=== PATIENT | female | born 1985 | race Caucasian/White ===

== ENCOUNTER 2019-05-27 04:15 | Emergency (ER) | payer SELFPAY ==
[2012-03-26 09:37] VITALS: BP 113/66
--- OUTSIDE RECORDS SUMMARY | 2019-05-27 04:17 | XMS REPORT ---
:1985 [facility] Address [address] [place] [address] Dr. Lopez [address] [place] [id number] Care Team Providers Name Role Phone Unavailable Unavailable Unavailable Problems This patient has no known problems. Allergies, Adverse Reactions, Alerts This patient has no known allergies or adverse reactions. Medications This patient has no known medications.
--- NOTE | 2019-05-27 05:03 | ER ---
Nurse's Notes [facility] Name: Kim Starr Age: 33 yrs Sex: Female : 1985 Arrival Date: 05/27/2019 Time: 04:18 Bed Waiting Private MD: Diagnosis: Presentation: 05/27 04:23 Note Registration states that pt started yelling to herself then stated that she did aa1 not want to be seen after all and walked out to the parking lot. ED Course: 04:18 Patient arrived in ED. es Administered Medications: No medications were administered Outcome: 05:02 Patient left the ED. aa1 Signatures: Yumiko Ramirez RN RN aa1 Bhavana Murguia
== END 2019-05-27 05:02 | disposition left against medical advice (07) ==
LOC: ER 04:15
DX: Z53.21 Procedure and treatment not carried out due to patient leaving prior to being seen by health care provider (principal)

== ENCOUNTER 2023-12-29 08:30 | Emergency (ER) | payer SELFPAY ==
[2012-03-26 09:37] VITALS: BP 113/66
--- OUTSIDE RECORDS SUMMARY | 2023-12-29 08:35 | XMS REPORT | Continuity of Care Document ---
Author Name Unknown Address [address] [facility] [address] [place] [address] [facility] Address [address] [facility] [address] [place] [address] Care Team Providers Care Yarn Carrier Name Role Phone Pcp, Patient Does Not Have A Primary Care Physic yanick Cami MAC, Oriana Jefferson Attending Clinician [phone] Michelle PARISH, Juan Valdez Attending Clinician [phone] Doctor Unassigned, [employer] Attending Clinician U BIANCA Gonzalez Attending Clinician Unavailab alyssa Pacheco MD, Bianca Attending Clinician [phone] SHILOH WRIGHT Attending Clinician Unavailab Shiloh Prescott DO Attending Clinician [phone] CASSIE FISHER Attending Clinician Unavailable Cassie Lawson Attending Clinician [phone] CAYDEN LAO Attending Clinician Unavailable Cayden Metcalf Attending Clinician [phone] ELIZABETH URIBE Attending Clinician Unavailable Elizabeth Uribe DO Attending Clinician [phone] Fredis Foy Attending Clinician Unavaila ble UNDEFINED Admitting Clinician Unavailable BIANCA PACHECO Admitting Clinician Unavailab CAYDEN Vu Admitting Clinician Unavailable Physician, No Primary or Family Admitting Clinic yanick Unavailable Payers Payer Name Policy Type Policy Number Effective Date Expirati on Date Source MEDICAID PENDING PENDING 2021 00:00:00 Problems Condition Name Condition Details Condition Category Status Onset Date Resolution Date Last Treatment Date Treating Clinician Comments Source 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 03-04 00:00: 00 [facility] Allergies, Adverse Reactions, Alerts Allergy Name Allergy Type Status Severity Reaction(s) Onset Date Inactive Date Treating Clinician Comments Source PENICILL IN DRUG INGREDI Active Unknown-Cmnt 08-18 00:00: 00 [facility] Penicill in Propensi ty to adverse reaction s Active Unknown - See comments 08-18 00:00: 00 [facility] Penicill ins DA Active MO 09-13 00:00: 00 [facility] Penicill ins DA Active MO ITCHING 09-13 00:00: 00 [facility] codeine DA Active SV 12-10 00:00: 00 [facility] codeine DA Active SV ITCH 12-10 00:00: 00 [facility] Codeine Propensi ty to adverse reaction s Active Nausea and/or Vomiting 10-03 00:00: 00 [facility] CODEINE DRUG INGREDI Active N/V 10-03 00:00: 00 [facility] Social History Social Habit Start Date Stop Date Quantity Comments Source History of tobacco use Cigarette Smoker [facility] of Social function 2023-11-24 00:00:00 2023-11-24 00:00:00 [facility] Alcoholic beverage intake 2023-11-24 00:00:00 2023-11-24 00:00:00 Current drinker of alcohol (finding) [facility] Cigarettes smoked current (pack per day) - Reported 2022-07-28 00:00:00 2022-07-28 00:00:00 [facility] Cigarette pack-years 2022-07-28 00:00:00 2022-07-28 00:00:00 [facility] Alcohol intake 2022-07-28 00:00:00 2022-07-28 00:00:00 Current drinker of alcohol (finding) [facility] Alcohol Comment 2022-07-28 00:00:00 2022-07-28 00:00:00 1 pint/day [facility] Exposure to SARS-CoV-2 (event) 2022-07-09 00:00:00 2022-07-19 10:58:00 Not sure [facility] Sex assigned at 1985 00:00:00 1985 00:00:00 [facility] Smoking Status Start Date Stop Date Source Smokes tobacco daily 2022-07-28 00:00:00 [facility] Tobacco smoking consumption unknown [facility] Medications Ordered Medication Name Filled Medication Name Start Date Stop Date Current Medication? Ordering Clinician Indication Dosage Frequency Signature (SIG) Comments Components Source tamsulosin (FLOMAX) capsule 0.4 mg 11-24 14:00: 00 Yes .4mg 0.4 mg, Oral, DAILY, First dose on Wed11/25/23 at 0900, Until Discontinu ed, Routine [facility] ketorolac (TORADOL) injection 15 mg 11-24 00:30: 00 11-23 23:47 :00 No 15mg 15 mg, Slow IV Push, ONCE, 1 dose, On 11/24/23 at 1930, Routine [facility] iopamidol (ISOVUE 370-500 mL) injection 80 mL 11-23 23:15: 00 11-23 23:15 :00 No [id number] 80mL 80 mL, Intravenou s, ONCE, 1 dose, On Wed11/24/23 at 1815, Routine [facility] NaCl 0.9% (NS) bolus infusion 1,000 mL 11-23 22:15: 00 11-24 00:26 :00 No 1000mL at 999 mL/hr, 1,000 mL, IV Infusion, ONCE, 1 dose, On Wed11/24/23 at 1715, JAI [facility] ciprofloxac in in 5 % dextrose (CIPRO) piggyback 400 mg 11-23 22:15: 00 11-23 22:59 :00 No 400mg 400 mg, IV Piggyback, ONCE, 1 dose, On Wed11/24/23 at 1715, Administer over 60 Minutes, 200 mL, Reason for Anti-Infec tive: Documented Infection, Documented Infection Site: Urine, Duration of Therapy: Once (ED) [facility] ciprofloxac in HCl 250 mg tablet 11-23 00:00: 00 11-23 00:00 :00 Yes [id number] 250mg Take 1 tablet by mouth in the morning and 1 tablet in the evening. [facility] ketorolac 10 mg tablet 11-23 00:00: 00 11-23 00:00 :00 Yes [id number] 10mg Take 1 tablet by mouth every 6 (six) hours as needed for Pain (scale 4-6) or Pain (scale 7-10). [facility] tamsulosin 0.4 mg 24 hr capsule 11-23 00:00: 00 11-23 00:00 :00 Yes [id number] .4mg Take 1 capsule by mouth at bedtime. [facility] iopamidol (ISOVUE 370-500 mL) injection 100 mL 10-14 12:45: 00 10-14 12:45 :00 Yes [id number] 100mL 100 mL, Intravenou s, ONCE, 1 dose, On Wed10/15/23 at 0745, Routine [facility] acetaminoph en (TYLENOL) tablet 1,000 mg 10-14 12:45: 00 10-14 11:37 :00 No 1000mg 1,000 mg, Oral, ONCE, 1 dose, On Wed10/15/23 at 0745, Routine [facility] levoFLOXaci n (LEVAQUIN) tablet 500 mg 10-14 11:45: 00 10-14 11:37 :00 No 500mg 500 mg, Oral, ONCE, 1 dose, On Wed10/15/23 at 0645, JAI
Re ason for Anti-Infec tive: Documented Infection< br>Documen dione Infection Site: Urine
D uration of Therapy: Other (see Comments) [facility] levoFLOXaci n 500 mg tablet 10-14 00:00: 00 11-23 00:00 :00 No [id number] 500mg Take 1 tablet by mouth every 24 (twenty-fo ur) hours. [facility] acetaminoph en (TYLENOL) tablet 650 mg 07-19 18:15: 00 07-19 19:05 :00 No 650mg 650 mg, Oral, ONCE, 1 dose, On 07/19/22 at 1215, JAI [facility] No known medications 07-19 10:58: 45 No No known medication s [facility] acetaminoph en (TYLENOL) tablet 650 mg 07-19 04:30: 00 07-19 04:20 :00 No 650mg 650 mg, Oral, ONCE, 1 dose, On 07/18/22 at 2230, JAI [facility] No known medications 07-18 22:17: 15 No No known medication s [facility] ibuprofen (IBU) tablet 600 mg 03-30 04:00: 00 03-30 03:59 :00 No 600mg 600 mg, Oral, ONCE, 1 dose, On 03/29/22 at 2300, JAI [facility] No known medications 03-29 22:48: 44 No No known medication s [facility] KCL (KLOR-CON M20) tablet 20 mEq 10-04 01:30: 00 10-04 00:48 :00 No 20meq 20 mEq, Oral, ONCE, 1 dose, On Wed10/03/21 at 2030, [facility] NaCl 0.9% (NS) bolus infusion 1,000 mL 10-04 01:00: 00 10-04 00:51 :00 No 1000mL at 999 mL/hr, 1,000 mL, IV Infusion, ONCE, 1 dose, On Wed10/03/21 at 1999, [facility] ondansetron (ZOFRAN (PF)) injection 4 mg 10-04 01:00: 00 10-03 23:58 :00 No 4mg 4 mg, Slow IV Push, ONCE, 1 dose, On Wed10/03/21 at 1999, [facility] metoprolol tartrate 50 mg tablet 10-03 18:45: 50 10-03 00:00 :00 No 50mg Take 50 mg by mouth 2 (two) times daily. [facility] Hydrocodone -Acetaminop hen (VICODIN ES) 7.5-300 mg tablet 10-03 18:45: 32 10-03 00:00 :00 No Take by mouth as needed. [facility] HYDROcodone -acetaminop hen (NORCO 5) 5-325 mg tablet 1 tablet 08-19 09:15: 00 08-19 08:06 :00 No 1{tbl} 1 tablet, Oral, ONCE, 1 dose, On Wed08/19/21 at 0315, [facility] iohexol (OMNIPAQUE 350 BULK-500 mL) injection 100 mL 08-19 07:00: 00 08-19 05:44 :00 No [id number] 100mL 100 mL, Intravenou s, ONCE, 1 dose, On Wed08/19/21 at 0100, Routine [facility] FENTanyl PF (SUBLIMAZE (PF)) injection 50 mcg 08-19 05:45: 00 08-19 05:04 :00 No 50ug 50 mcg, Slow IV Push, ONCE, 1 dose, On Wed08/18/21 at 2345, STAT [facility] Vancomycin 750 mg in NaCl 0.9% (NS) 250 mL VIAL-MATE 08-19 05:00: 00 08-19 05:06 :00 No 15mg/kg 750 mg (rounded from 714 mg = 15 mg/kg ?47.6 kg), IV Piggyback, ONCE, 1 dose, On Wed08/18/21 at 2300, Administer over 60 Minutes, 250 mL
Reas on for Anti-Infec tive: Documented Infection< br>Docu mented Infection Site: Skin / Soft Tissue
Duration of Therapy: Other (see Comments) [facility] HYDROcodone -acetaminop hen (NORCO 5) 5-325 mg tablet 1 tablet 08-19 05:00: 00 08-19 04:06 :00 No 1{tbl} 1 tablet, Oral, ONCE, 1 dose, On Wed08/18/21 at 2300, JAI [facility] doxycycline hyclate 100 mg capsule 08-19 00:00: 00 10-03 00:00 :00 No [id number] 100mg Take 1 capsule by mouth 2 (two) times daily. [facility] ibuprofen 600 mg tablet 08-19 00:00: 00 10-03 00:00 :00 No [id number] 600mg Take 1 tablet by mouth every 6 (six) hours as needed for Pain (scale 4-6). [facility] mupirocin 2 % ointment 08-19 00:00: 00 10-03 00:00 :00 No [id number] Apply to area(s) 3 (three) times daily. [facility] clindamycin 150 mg capsule 08-19 00:00: 00 08-27 05:59 :00 No [id number] 450mg Take 3 capsules by mouth 4 (four) times daily for 7 days. [facility] sulfamethox azole-trime thoprim 800-160 mg per tablet 11-08 00:00: 00 10-03 00:00 :00 No [id number] 1{tbl} Take 1 tablet by mouth every 12 (twelve) hours. [facility] mupirocin (BACTROBAN) 2 % ointment 11-08 00:00: 00 10-03 00:00 :00 No [id number] Apply to area(s) 3 (three) times daily. [facility] ibuprofen 600 mg tablet 11-08 00:00: 10-03 00:00 :00 No [id number] 600mg Take 1 tablet by mouth every 6 (six) hours as needed for Pain (scale 4-6). [facility] metoprolol tartrate 50 mg tablet 01-28 04:26: 59 Yes 50mg Take 50 mg by mouth 2 (two) times daily. [facility] Hydrocodone -Acetaminop hen (VICODIN ES) 7.5-300 mg tablet 01-28 04:26: 59 Yes Take by mouth as needed. [facility] metoprolol tartrate 50 mg tablet 01-27 23:26: 59 Yes 50mg Take 50 mg by mouth 2 (two) times daily. [facility] Hydrocodone -Acetaminop hen (VICODIN ES) 7.5-300 mg tablet 01-27 23:26: 59 Yes Take by mouth as needed. [facility] Immunizations Ordered Immunization Name Filled Immunization Name Date Status Comments Source Td 2022-03-29 00:00:00 Completed [facility] TD, NOS 2022-03-29 00:00:00 Completed [facility] TD, NOS 2022-03-29 00:00:00 Completed [facility] TD, NOS 2022-03-29 00:00:00 Completed [facility] Td 2019-05-12 00:00:00 Completed [facility] Td 2019-05-12 00:00:00 Completed [facility] TD, NOS 2019-05-12 00:00:00 Completed [facility] TD, NOS 2019-05-12 00:00:00 Completed [facility] Td 2019-05-12 00:00:00 Completed [facility] TD, NOS 2019-05-12 00:00:00 Completed [facility] Td 2019-05-12 00:00:00 Completed [facility] Td 2019-05-12 00:00:00 Completed [facility] Td 2019-05-12 00:00:00 Completed [facility] TD, NOS Unknown Completed [facility] TD, NOS Unknown Completed [facility] TD, NOS Unknown Completed [facility] TD, NOS Unknown Completed [facility] Vital Signs Vital Name Observation Time Observation Value Comments S ource Systolic blood pressure 2023-11-25 00:25:00 137 mm[Hg] [facility] Diastolic blood pressure 2023-11-25 00:25:00 93 mm[Hg] [facility] Heart rate 2023-11-25 00:25:00 81 /min [facility] Body temperature 2023-11-25 00:25:00 36.06 Chantelle [facility] Respiratory rate 2023-11-25 00:25:00 18 /min [facility] Oxygen saturation in Arterial blood by Pulse oximetry 2023-11-25 00:25:00 100 /min [facility] Body height 2023-11-24 21:16:[address] [facility] Body weight 2023-11-24 21:16:[address] [facility] BMI 2023-11-24 21:16:00 16.14 kg/m2 [facility] Systolic blood pressure 2023-10-15 09:20:00 143 mm[Hg] [facility] Diastolic blood pressure 2023-10-15 09:20:00 77 mm[Hg] [facility] Heart rate 2023-10-15 09:20:00 87 /min [facility] Body temperature 2023-10-15 09:20:00 37.11 Chantelle [facility] Respiratory rate 2023-10-15 09:20:00 18 /min [facility] Body height 2023-10-15 09:20:00 167.6 cm [facility] Body weight 2023-10-15 09:20:00 48.988 kg [facility] BMI 2023-10-15 09:20:00 17.43 kg/m2 [facility] Oxygen saturation in Arterial blood by Pulse oximetry 2023-10-15 09:20:00 98 /min [facility] Systolic blood pressure 2022-07-19 16:59:00 127 mm[Hg] [facility] Diastolic blood pressure 2022-07-19 16:59:00 84 mm[Hg] [facility] Heart rate 2022-07-19 16:59:00 80 /min [facility] Body temperature 2022-07-19 16:59:00 36.39 Chantelle [facility] Respiratory rate 2022-07-19 16:59:00 14 /min [facility] Body height 2022-07-19 16:59:[address] [facility] Body weight 2022-07-19 16:59:[address] [facility] BMI 2022-07-19 16:59:00 17.75 kg/m2 [facility] Oxygen saturation in Arterial blood by Pulse oximetry 2022-07-19 16:59:00 100 /min [facility] Systolic blood pressure 2022-07-19 04:16:00 130 mm[Hg] [facility] Diastolic blood pressure 2022-07-19 04:16:00 82 mm[Hg] [facility] Heart rate 2022-07-19 04:16:00 87 /min [facility] Body temperature 2022-07-19 04:16:00 36.28 Chantelle [facility] Respiratory rate 2022-07-19 04:16:00 19 /min [facility] Body height 2022-07-19 04:16:00 167.6 cm [facility] Body weight 2022-07-19 04:16:00 48.988 kg [facility] BMI 2022-07-19 04:16:00 17.43 kg/m2 [facility] Oxygen saturation in Arterial blood by Pulse oximetry 2022-07-19 04:16:00 99 /min [facility] Systolic blood pressure 2022-03-30 03:54:00 139 mm[Hg] [facility] Diastolic blood pressure 2022-03-30 03:54:00 78 mm[Hg] [facility] Heart rate 2022-03-30 03:54:00 85 /min [facility] Body temperature 2022-03-30 03:54:00 36.72 Chantelle [facility] Respiratory rate 2022-03-30 03:54:00 20 /min [facility] Body height 2022-03-30 03:54:00 167.6 cm [facility] Body weight 2022-03-30 03:54:[address] [facility] BMI 2022-03-30 03:54:00 19.68 kg/m2 [facility] Oxygen saturation in Arterial blood by Pulse oximetry 2022-03-30 03:54:00 98 /min [facility] Heart rate 2021-10-04 00:30:00 83 /min [facility] Respiratory rate 2021-10-04 00:30:00 14 /min [facility] Oxygen saturation in Arterial blood by Pulse oximetry 2021-10-04 00:30:00 99 /min [facility] Systolic blood pressure 2021-10-04 00:00:00 131 mm[Hg] [facility] Diastolic blood pressure 2021-10-04 00:00:00 91 mm[Hg] [facility] Body temperature 2021-10-03 23:41:00 36.61 Chantelle [facility] Body weight 2021-10-03 23:41:00 56.7 kg [facility] BMI 2021-10-03 23:41:00 19.58 kg/m2 [facility] Heart rate 2021-08-19 08:33:00 92 /min [facility] Respiratory rate 2021-08-19 08:33:00 18 /min [facility] Oxygen saturation in Arterial blood by Pulse oximetry 2021-08-19 08:33:00 97 /min [facility] Systolic blood pressure 2021-08-19 05:30:00 123 mm[Hg] [facility] Diastolic blood pressure 2021-08-19 05:30:00 83 mm[Hg] [facility] Body weight 2021-08-19 03:33:[address] [facility] BMI 2021-08-19 03:33:00 16.45 kg/m2 [facility] Body temperature 2021-08-19 03:33:00 36.17 Chantelle [facility] Body height 2021-08-19 03:33:[address] [facility] Systolic blood pressure 2021-08-03 08:57:46 151 mm[Hg] [facility] Diastolic blood pressure 2021-08-03 08:57:46 114 mm[Hg] [facility] Heart rate 2021-08-03 08:57:46 98 /min [facility] Body temperature 2021-08-03 08:57:46 37.11 Chantelle [facility] Respiratory rate 2021-08-03 08:57:46 18 /min [facility] Oxygen saturation in Arterial blood by Pulse oximetry 2021-08-03 08:57:46 95 /min [facility] Body height 2021-08-03 08:56:[address] [facility] Body weight 2021-08-03 08:56:[address] [facility] BMI 2021-08-03 08:56:00 20.98 kg/m2 [facility] Systolic blood pressure 2021-02-22 08:38:00 143 mm[Hg] [facility] Diastolic blood pressure 2021-02-22 08:38:00 87 mm[Hg] [facility] Heart rate 2021-02-22 08:38:00 52 /min [facility] Respiratory rate 2021-02-22 08:38:00 14 /min [facility] Body height 2021-02-22 08:38:[address] [facility] Body weight 2021-02-22 08:38:[address] [facility] BMI 2021-02-22 08:38:00 20.98 kg/m2 [facility] Oxygen saturation in Arterial blood by Pulse oximetry 2021-02-22 08:38:00 94 /min [facility] Procedures Procedure Date / Time Performed Performing Clinician Source POCT TEST 2023-11-24 21:51:00 Oriana Almanza [facility] LIPASE 2023-11-24 21:50:[address] [facility] COMP. METABOLIC PANEL ([id number]) 2023-11-24 21:50:00 Oriana Almanza [facility] ETHANOL 2023-11-24 21:50:[address] [facility] CBC WITH DIFF 2023-11-24 21:50:00 Oriana Almanza [facility] URINALYSIS 2023-11-24 21:50:[address] [facility] URINE DRUG (IMMUNOASSAY) - COMPREHENSIVE DRUG SCREEN W/O REFLEX 2023-11-24 21:50:00 Oriana Almanza [facility] LIPASE 2023-10-15 10:31:[address] [facility] COMP. METABOLIC PANEL ([id number]) 2023-10-15 10:31:00 Juan Martinez [facility] CBC WITH DIFF 2023-10-15 10:31:00 Juan Martinez [facility] URINALYSIS 2023-10-15 09:50:[address] [facility] EMERGENCY DEPARTMENT DOCUMENTS 2022-09-07 06:01:00 Doctor Unassigned, [employer] [facility] XR ABDOMEN ACUTE SERIES 2022-07-19 18:38:00 Bianca Cota [facility] COVID-19 (ID NOW RAPID TESTING) 2022-07-19 18:24:00 Vinodoejoliemalinda Bianca [facility] LIPASE 2021-10-03 23:53:00 [facility] 2021-10-03 23:53:00 José Miguel [facility] COMP. METABOLIC PANEL ([id number]) 2021-10-03 23:53:00 Cassie Fisher [facility] ETHANOL 2021-10-03 23:53:00 José Miguel [facility] CBC WITH DIFF 2021-10-03 23:53:00 Cassie Fisher [facility] N-TERMINAL PRO-BNP 2021-10-03 23:53:00 Blanca Fisher [facility] INCISION AND DRAINAGE 2021-08-19 08:28:14 Curtis Lao [facility] LACTIC ACID WHOLE BLOOD 2021-08-19 07:22:00 Me helen Lao [facility] CT SOFT TISSUE NECK W CONTRAST 2021-08-19 05:46:00 Cayden Lao [facility] POCT TEST 2021-08-19 05:39:00 Cayden Lao [facility] URINALYSIS 2021-08-19 05:23:00 Cayden Lao [facility] URINE DRUG (IMMUNOASSAY) - COMPREHENSIVE DRUG SCREEN W/O REFLEX 2021-08-19 05:23:00 Cayden Lao [facility] XR HAND 3+ VW LEFT 2021-08-19 04:53:00 Cayden Lao [facility] BLOOD CULTURE SCREEN 2021-08-19 04:21:00 Cayden Lao [facility] COMP. METABOLIC PANEL ([id number]) 2021-08-19 04:20:00 Cayedn Lao [facility] CBC WITH DIFF 2021-08-19 04:20:[address] [facility] LACTIC ACID WHOLE BLOOD 2021-08-19 04:19:00 Me helen Lao [facility] Encounters Start Date/Time End Date/Time Encounter Type Admission Type Attending [facility] Care Department Encounter ID Source 2019-09-14 10:13:00 Inpatient [facility] [id number] [facility] 2023-11-24 16:05:00 2023-11-24 19:29:00 Emergency Oriana Almanza [facility] [id number] [facility] 2023-10-15 04:47:00 2023-10-15 07:34:00 Emergency Michelle Juan Valdez [facility] [id number] [facility] 2022-09-07 00:00:00 2022-09-07 00:00:00 Orders Only Doctor Unassigned, [employer] [facility] [id number] [id number] [facility] 2022-07-19 10:56:00 2022-07-19 13:41:00 Emergency BIANCA PRYOR [facility] E[facility] [id number] [facility] 2022-07-19 10:56:00 2022-07-19 13:41:00 Emergency Bianca Pacheco [facility] [id number] [id number] [facility] 2022-07-18 22:16:00 2022-07-18 22:52:00 Emergency SHILOH URBINA [facility] ERT [id number] [facility] 2022-07-18 22:16:00 2022-07-18 22:52:00 Emergency Shiloh Wright [facility] [id number] [facility] 2022-03-29 22:56:00 2022-03-29 23:12:00 Emergency X SHILOH WRIGHT [facility] ERT [id number] [facility] 2022-03-29 22:56:00 2022-03-29 23:12:00 Emergency Shiloh Wright [facility] 1..114 [id number] [id number] [facility] 2021-10-03 18:40:00 2021-10-03 19:56:00 Emergency X CASSIE FISHER [facility] [id number] [facility] [facility] 2021[facility]-03 18:40:00 2021-10-03 19:56:00 Emergency Cassie Fisher [facility] 1..114 350.1.13.10 4.2.7.2.686 [id number] [id number] [facility] 2021-08-18 21:38:00 2021-08-19 02:43:00 Emergency X CAYDEN LAO [facility] ERT [id number] [facility] 2021-08-18 21:38:00 2021-08-19 02:43:00 Emergency Cayden Lao [facility] 1.84.114 350.1.13.10 4.2.7.2.686 [id number] [id number] [facility] 2021-08-03 03:33:00 2021-08-03 03:34:00 Emergency X ELIZABETH URIBE [facility] ERT [id number] [facility] 2021-08-03 03:33:00 2021-08-03 03:34:00 Emergency Elizabeth Uribe [facility] 1.84.114 350.1.13.10 4.2.7.2.686 [id number] [id number] [facility] 2021-07-30 14:36:00 2021-07-30 17:19:00 Emergency X ELIZABETH URIBE [facility] ERT [id number] [facility] 2021-07-30 14:36:00 2021-07-30 17:19:00 Emergency Elizabeth Uribe [facility] 1.2.840.114 350.1.13.10 4.2.7.2.686 [id number] 084 [id number] [facility] 2021-02-22 03:41:00 2021-02-22 04:34:00 Emergency Juan Martinez [facility] 1.2.840.114 350.1.13.10 4.2.7.2.686 [id number] [id number] [facility] 2021-02-22 03:41:00 2021-02-22 03:41:00 Emergency X [facility] ERT [id number] [facility] 2019-09-15 00:24:00 2019-09-15 00:24:00 Outpatient Fredis Foy [facility] OUTD [id number] 17 [facility] 2019-05-12 23:26:57 2019-05-12 23:54:00 Emergency X SHILOH WRIGHT [facility] ERT [id number] [facility] Results Test Description Test Time Test Comments Results Result Co mments Source [facility] 22:18:04* Test Item Value Reference Range Interpretation Comme nts ALCOHOL (test code = 7624754733) 209 mg/dL CECIL (test code = CECIL) <10 [id number] Toxic>100 Depression of DATA VISUALIZATION DEVELOPER>400 Fatalities Reported [facility] METABOLIC PANEL (32071)2023-11-24 22:17:23* Test Item Value Reference Range Interpretation Comme nts NA (test code = 7241515148) 140 mmol/L 135-145 K (test code = 5634263456) 3.3 mmol/L 3.5-5.0 L CL (test code = 0876956776) 107 mmol/L 98-108 CO2 TOTAL (test code = 5701084874) 21 mmol/L 23-31 L AGAP (test code = 5378806312) 12 2-16 BUN (test code = 1835975479) 16 mg/dL 7-23 GLUCOSE (test code = 6550921383) 88 mg/dL 70-110 CREATININE (test code = 2160-0) 0.83 mg/dL 0.50-1.04 TOTAL BILI (test code = 2360613278) 0.9 mg/dL 0.1-1.1 CALCIUM (test code = 5637303409) 8.4 mg/dL 8.6-10.6 L T PROTEIN (test code = 7321644684) 7.6 g/dL 6.3-8.2 ALBUMIN (test code = 6590724642) 4.0 g/dL 3.5-5.0 ALK PHOS (test code = 4908297227) 112 U/L 34-122 ALTv (test code = 1742-6) 16 U/L 5-35 AST(SGOT) (test code = 1429603306) 41 U/L 13-40 H eGFR (test code = 31394-3) 91.5 mL/min/1.73m2 CKD-EPI eGFR (2020). Assuming creatinine has been stable day-to-day for at least three months, the eGFR indicates Category G1 (>= 90 mL/min/1.73 m2) Lab Interpretation (test code = 97038-7) Abnormal [facility]2024-05-15 22:17:08* Test Item Value Reference Range Interpretation Comme nts LIPASE (test code = 0068185693) 96 U/L 0-220 Lab Interpretation (test cod e = 96175-6) Normal [facility] [id number] 21:51:00* Test Item Value Reference Range Interpretation Comme nts POCT PREG (test code = 1605) Negative On board controls acceptable with C Line (test code = 3574) Yes POCT PREG LOT # (test code = 3575) [id number] POCT PREG TEST DATE ( test code = 3576) 2024-10-17 Lab Interpretation (test cod e = 14054-8) Normal [facility] with [id number] 11:25:41* Test Item Value Reference Range Interpretation Comme nts WBC (test code = 6690-2) 4.84 4.30-11.10 RBC (test code = 789-8) 4.07 3.93-5.25 HGB (test code = 718-7) 7.5 g/dL 11.6-15.0 L HCT (test code = 4544-3) 27.0 % 35.7-45.2 L MCV (test code = 787-2) 66.3 fL 80.6-95.5 L MCH (test code = 785-6) 18.4 pg 25.9-32.8 L MCHC (test code = 786-4) 27.8 g/dL 31.6-35.1 L RDW-SD (test code = 24968-2) 39.2 fL 39.0-49.9 RDW-CV (test code = 788-0) 16.7 % 12.0-15.5 H PLT (test code = 777-3) 318 166-358 MPV (test code = 96962-9) 9.0 fL 9.5-12.9 L NRBC/100 WBC (test code = 6235144692) 0.0 0.0-10.0 NRBC x10^3 (test code = 8525043929) See_Comment [Automated messa ge] The system which generated this result transmitted reference range: 10*3/?L. The reference range was not used to interpret this result as normal/abnormal. SEG % (test code = 39490-0) 72 % 33-76 LYMPH % (test code = 77596-9) 16 % 14-54 MONO % (test code = 81616-7) 12 % 0-4 H ANC (test code = 753-4) 3.48 10*3/uL 1.88-7.09 Lab Interpretation (test code = 71498-0) Abnormal [facility] Metabolic Panel (72077)2023-10-15 11:07:15* Test Item Value Reference Range Interpretation Comme nts NA (test code = 6815632478) 137 mmol/L 135-145 K (test code = 3939366273) 3.3 mmol/L 3.5-5.0 L CL (test code = 8870140742) 104 mmol/L 98-108 CO2 TOTAL (test code = 2589993207) 22 mmol/L 23-31 L AGAP (test code = 6903298125) 11 2-16 BUN (test code = 3326234579) 18 mg/dL 7-23 GLUCOSE (test code = 8155512978) 99 mg/dL 70-110 CREATININE (test code = 2160-0) 0.78 mg/dL 0.50-1.04 TOTAL BILI (test code = 1856479809) 0.8 mg/dL 0.1-1.1 CALCIUM (test code = 2210474475) 9.1 mg/dL 8.6-10.6 T PROTEIN (test code = 0561447050) 8.3 g/dL 6.3-8.2 H ALBUMIN (test code = 5899838396) 4.3 g/dL 3.5-5.0 ALK PHOS (test code = 1104117643) 95 U/L 34-122 ALTv (test code = 1742-6) 17 U/L 5-35 AST(SGOT) (test code = 7511571220) 38 U/L 13-40 eGFR (test code = 80930-8) 98.6 mL/min/1.73m2 CKD-EPI eGFR (2020). Assuming creatinine has been stable day-to-day for at least three months, the eGFR indicates Category G1 (>= 90 mL/min/1.73 m2) Lab Interpretation (test code = 51953-5) Abnormal [facility]2024-04-05 11:06:54* Test Item Value Reference Range Interpretation Comme nts LIPASE (test code = 5523041704) 124 U/L 0-220 Lab Interpretation (test cod e = 58209-3) Normal [facility]aleTROPONIN [id number] 00:32:37* Test Item Value Reference Range Interpretation Comments TROPONIN I (test code = 6251574918) 0.002 ng/mL See_Comment [Automated message] The system which generated this result transmitted reference range: <=0.034. The reference range was not used to interpret this result as normal/abnormal. CECIL (test code = CECIL) Reference (Normal) Range (defined by the 99th percentile reference limit): <= 0.034 ng/mL Note: Cardiac troponin begins to rise 3-4 hours after the onset of ischemia. Repeat in 4-6 hours if the sample was drawn within 3-4 hours of the onset of the symptom and found normal. Diagnosis of myocardial injury is made with acute changes in cTn concentrations with at least one serial sample above the 99th percentile upper reference limit (URL), taken together with the patient's clinical presentation. Biotin has been reported to cause a negative bias, interpret results relative to patient's use of biotin. Lab Interpretation (test code = 06422-0) Normal [facility]aleN-TERMINAL BYM-TBV1618-67-26 00:29:16* Test Item Value Reference Range Interpretation Comme nts NT-proBNP (test code = 8247680063) 223 pg/mL See_Comment H [Automated message] The system which generated this result transmitted reference range: <=125. The reference range was not used to interpret this result as normal/abnormal. CECIL (test code = CECIL) Biotin has been reported to cause a negative bias, interpret results relative to patient's use of biotin. Lab Interpretation (test code = 59152-5) Abnormal [facility]ETH[facility]OL2022-03-26 00:21:13* Test Item Value Reference Range Interpretation Comme nts ALCOHOL (test code = 7102928166) 72 mg/dL CECIL (test code = CECIL) <10 Lqwrouor78-685 Toxic>100 Depression of DATA VISUALIZATION DEVELOPER>400 Fatalities Reported [facility]. METABOLIC PANEL (26342)2021-10-04 00:20:37* Test Item Value Reference Range Interpretation Comme nts NA (test code = 0006158707) 137 mmol/L 135-145 K (test code = 8767625331) 3.3 mmol/L 3.5-5.0 L CL (test code = 1391698575) 105 mmol/L 98-108 CO2 TOTAL (test code = 6530432319) 21 mmol/L 23-31 L AGAP (test code = 0432622146) 2-16 BUN (test code = 2492290647) 14 mg/dL 7-23 GLUCOSE (test code = 7856413847) 89 mg/dL 70-110 CREATININE (test code = 7894893821) 0.77 mg/dL 0.50-1.04 TOTAL BILI (test code = 6877800557) 0.7 mg/dL 0.1-1.1 CALCIUM (test code = 9464407962) 8.6 mg/dL 8.6-10.6 T PROTEIN (test code = 6490408260) 7.4 g/dL 6.3-8.2 ALBUMIN (test code = 9681193846) 4.4 g/dL 3.5-5.0 ALK PHOS (test code = 8250340697) 72 U/L 34-122 ALTv (test code = 1742-6) 16 U/L 5-35 AST(SGOT) (test code = 0414433124) 32 U/L 13-40 eGFR (test code = 6033324249) mL/min/1.73m2 CECIL (test code = CECIL) Association of Glomerular Filtration Rate (GFR) and Staging of Kidney Disease* + --+ --+ ------+| GFR (mL/min/1.73 m2) ?| With Kidney Damage ?| ?Without Kidney Damage+ --------+ --------+ +| ?>90 ?| ?Stage one ?| ? Normal ?+ ---+ ---+ -------+| ?60-89 ?| ?Stage two ?| ? Decreased GFR ? + --+ --+ ------+| ?30-59 ?| ?Stage three ?| ? Stage three ? + --+ --+ ------+| ?15-29 ?| ?Stage four ? | ? Stage four ?+ ---+ ---+ -------+| ?<15 (or dialysis) ? ?| ?Stage five ? | ? Stage five ?+ ---+ ---+ -------+ *Each stage assumes the associated GFR level has been in effect for at least three months. ?Stages 1 to 5, with or without kidney disease, indicate chronic kidney disease. Notes: Determination of stages one and two (with eGFR >59mL/min/1.73 m2) requires estimation of kidney damage for at least three months as defined by structural or functional abnormalities of the kidney, manifested by either:Pathological abnormalities or Markers of kidney damage (including abnormalities in the composition of the blood or urine or abnormalities in imaging tests). Lab Interpretation (test code = 25891-3) Abnormal [facility]2022-03-26 00:20:17* Test Item Value Reference Range Interpretation Comme nts LIPASE (test code = 4530191318) 150 U/L 0-220 Lab Interpretation (test cod e = 13557-7) Normal [facility]aleCB WITH [id number] 00:13:12* Test Item Value Reference Range Interpretation Comme nts WBC (test code = 6690-2) See_Comment [Automated messa ge] The system which generated this result transmitted reference range: 4.30 - 11.10 10*3/?L. The reference range was not used to interpret this result as normal/abnormal. RBC (test code = 789-8) See_Comment L [Automated messa ge] The system which generated this result transmitted reference range: 3.93 - 5.25 10*6/?L. The reference range was not used to interpret this result as normal/abnormal. HGB (test code = 718-7) 9.3 g/dL 11.6-15.0 L HCT (test code = 4544-3) 30.6 % 35.7-45.2 L MCV (test code = 787-2) 80.3 fL 80.6-95.5 L MCH (test code = 785-6) 24.4 pg 25.9-32.8 L MCHC (test code = 786-4) 30.4 g/dL 31.6-35.1 L RDW-SD (test code = 96990-2) 44.0 fL 39.0-49.9 RDW-CV (test code = 788-0) 15.0 % 12.0-15.5 PLT (test code = 777-3) See_Comment H [Automated messa ge] The system which generated this result transmitted reference range: 166 - 358 10*3/?L. The reference range was not used to interpret this result as normal/abnormal. MPV (test code = 39358-4) 9.2 fL 9.5-12.9 L NRBC/100 WBC (test code = 9200609907) See_Comment [Automated me ssage] The system which generated this result transmitted reference range: 0.0 - 10.0 /100 WBCs. The reference range was not used to interpret this result as normal/abnormal. NRBC x10^3 (test code = 3092782284) <0.01 See_Comment [Automated messa ge] The system which generated this result transmitted reference range: 10*3/?L. The reference range was not used to interpret this result as normal/abnormal. GRAN MAT (NEUT) % (test code = 770-8) 70.6 % IMM GRAN % (test code = 1542478698) 0.40 % LYMPH % (test code = 736-9) 19.9 % MONO % (test code = 5905-5) 7.8 % EOS % (test code = 713-8) 0.7 % BASO % (test code = 706-2) 0.6 % GRAN MAT x10^3(ANC) (test code = 3909789935) 3.81 10*3/uL 1.88-7.09 IMM GRAN x10^3 (test code = 8291810098) <0.03 0.00-0.06 LYMPH x10^3 (test code = 731-0) 1.07 10*3/uL 1.32-3.29 L MONO x10^3 (test code = 742-7) 0.42 10*3/uL 0.33-0.92 EOS x10^3 (test code = 711-2) 0.04 10*3/uL 0.03-0.39 BASO x10^3 (test code = 704-7) 0.03 10*3/uL 0.01-0.07 Lab Interpretation (test code = 28675-2) Abnormal [facility] [id number] 05:39:00* Test Item Value Reference Range Interpretation Comme nts POCT PREG (test code = 1605) negative On board controls acceptable with C Line (test code = 3574) negative POCT PREG LOT # (test code = 3575) [id number] POCT PREG TEST DATE ( test code = 3576) 09-08-2022 Lab Interpretation (test cod e = 79738-0) Normal [facility]. METABOLIC PANEL (00852)2021-08-19 05:01:43* Test Item Value Reference Range Interpretation Comme nts NA (test code = 8807511571) 138 mmol/L 135-145 K (test code = 3554804347) 3.4 mmol/L 3.5-5.0 L CL (test code = 7517770048) 105 mmol/L 98-108 CO2 TOTAL (test code = 8907108950) 26 mmol/L 23-31 AGAP (test code = 9837412718) 2-16 BUN (test code = 6224243665) 11 mg/dL 7-23 GLUCOSE (test code = 6902404439) 97 mg/dL 70-110 CREATININE (test code = 9204006873) 0.72 mg/dL 0.50-1.04 TOTAL BILI (test code = 9375342394) 0.2 mg/dL 0.1-1.1 CALCIUM (test code = 3692878435) 7.5 mg/dL 8.6-10.6 L T PROTEIN (test code = 1673233377) 6.0 g/dL 6.3-8.2 L ALBUMIN (test code = 9875432303) 3.0 g/dL 3.5-5.0 L ALK PHOS (test code = 9966150940) 104 U/L 34-122 ALTv (test code = 1742-6) 11 U/L 5-35 AST(SGOT) (test code = 6936474419) 26 U/L 13-40 eGFR (test code = 8431203396) mL/min/1.73m2 CECIL (test code = CECIL) Association of Glomerular Filtration Rate (GFR) and Staging of Kidney Disease* + --+ --+ ------+| GFR (mL/min/1.73 m2) ?| With Kidney Damage ?| ?Without Kidney Damage+ --------+ --------+ +| ?>90 ?| ?Stage one ?| ? Normal ?+ ---+ ---+ -------+| ?60-89 ?| ?Stage two ?| ? Decreased GFR ? + --+ --+ ------+| ?30-59 ?| ?Stage three ?| ? Stage three ? + --+ --+ ------+| ?15-29 ?| ?Stage four ? | ? Stage four ?+ ---+ ---+ -------+| ?<15 (or dialysis) ? ?| ?Stage five ? | ? Stage five ?+ ---+ ---+ -------+ *Each stage assumes the associated GFR level has been in effect for at least three months. ?Stages 1 to 5, with or without kidney disease, indicate chronic kidney disease. Notes: Determination of stages one and two (with eGFR >59mL/min/1.73 m2) requires estimation of kidney damage for at least three months as defined by structural or functional abnormalities of the kidney, manifested by either:Pathological abnormalities or Markers of kidney damage (including abnormalities in the composition of the blood or urine or abnormalities in imaging tests). Lab Interpretation (test code = 49750-7) Abnormal [facility] WITH [id number] 04:47:59* Test Item Value Reference Range Interpretation Comme nts WBC (test code = 6690-2) See_Comment [Automated [employer]] The system which generated this result transmitted reference range: 4.30 - 11.10 10*3/?L. The reference range was not used to interpret this result as normal/abnormal. RBC (test code = 789-8) See_Comment L [Automated [employer]] The system which generated this result transmitted reference range: 3.93 - 5.25 10*6/?L. The reference range was not used to interpret this result as normal/abnormal. HGB (test code = 718-7) 8.9 g/dL 11.6-15.0 L HCT (test code = 4544-3) 28.7 % 35.7-45.2 L MCV (test code = 787-2) 86.2 fL 80.6-95.5 MCH (test code = 785-6) 26.7 pg 25.9-32.8 MCHC (test code = 786-4) 31.0 g/dL 31.6-35.1 L RDW-SD (test code = 66241-2) 45.7 fL 39.0-49.9 RDW-CV (test code = 788-0) 14.6 % 12.0-15.5 PLT (test code = 777-3) See_Comment [Automated [employer]] The system which generated this result transmitted reference range: 166 - 358 10*3/?L. The reference range was not used to interpret this result as normal/abnormal. MPV (test code = 84406-5) 9.3 fL 9.5-12.9 L NRBC/100 WBC (test code = 8756686913) See_Comment [Automated me ssage] The system which generated this result transmitted reference range: 0.0 - 10.0 /100 WBCs. The reference range was not used to interpret this result as normal/abnormal. NRBC x10^3 (test code = 8799774467) <0.01 See_Comment [Automated messa ge] The system which generated this result transmitted reference range: 10*3/?L. The reference range was not used to interpret this result as normal/abnormal. GRAN MAT (NEUT) % (test code = 770-8) 75.6 % IMM GRAN % (test code = 3581187605) 0.40 % LYMPH % (test code = 736-9) 12.8 % MONO % (test code = 5905-5) 10.3 % EOS % (test code = 713-8) 0.6 % BASO % (test code = 706-2) 0.3 % GRAN MAT x10^3(ANC) (test code = 6058236345) 5.09 10*3/uL 1.88-7.09 IMM GRAN x10^3 (test code = 0274460508) 0.03 10*3/uL 0.00-0.06 LYMPH x10^3 (test code = 731-0) 0.86 10*3/uL 1.32-3.29 L MONO x10^3 (test code = 742-7) 0.69 10*3/uL 0.33-0.92 EOS x10^3 (test code = 711-2) 0.04 10*3/uL 0.03-0.39 BASO x10^3 (test code = 704-7) <0.03 0.01-0.07 Lab Interpretation (test code = 31099-1) Abnormal [facility] [id number] 13:02:00* Test Item Value Reference Range Interpretation Comme nts TROPONIN I RAPID (test code = TROPIRAP) 0.00 ng/mL 0.00-0.08 N - The use of ser ial sampling and testing protocol is a recommended practice- An elevated troponin level alone is often not sufficient for diagnosis of myocardial infarction. COMPREHENSIVE METABOLIC [id number] 11:17:00* Test Item Value Reference Range Interpretation Comme nts SODIUM (test code = NA) 135 mmol/L 134-147 N POTASSIUM (test code = K) 4.3 mmol/L 3.4-5.0 N CHLORIDE (test code = CL) 103 mmol/L 100-108 N CARBON DIOXIDE (test code = CO2) 24 mmol/L 21-32 N ANION GAP (test code = GAP) 8.0 GAP calc 4.0-15.0 N GLUCOSE (test code = GLU) 70 MG/DL 70-110 N BLOOD UREA NITROGEN (test code = BUN) 18 MG/DL 7-18 N GLOMERULAR FILTRATION RATE (test code = GFR) >=60 max estimate estGFR >60 CREATININE (test code = CREAT) 0.8 MG/DL 0.6-1.0 N TOTAL PROTEIN (test code = PROT) 8.5 G/DL 6.4-8.2 H ALBUMIN (test code = ALB) 4.5 G/DL 3.4-5.0 N GLOBULIN (test code = GLOB) 4.0 GM/dL ALBUMIN/GLOBULIN RATIO (test code = A/G) 1.1 RATIO 1.2-2.2 L CALCIUM (test code = CA) 9.8 MG/DL 8.5-10.1 N BILIRUBIN TOTAL (test code = BILT) 0.90 MG/DL 0.2-1.2 N SGOT/AST (test code = AST) 30 Unit/L 15-37 N SGPT/ALT (test code = ALT) 25 Unit/L 12-78 N ALKALINE PHOSPHATASE TOTAL (test code = ALKP) 69 Unit/L 45-117 N LACTIC [id number] 11:17:00* Test Item Value Reference Range Interpretation Comme nts LACTIC ACID (test code = LACT) 1.1 mmol/L 0.4-2.0 N CBC W/AUTO [id number] 11:11:00* Test Item Value Reference Range Interpretation Comme nts WHITE BLOOD CELL (test code = WBC) 10.0 K/mm3 3.5-11.0 N RED BLOOD CELL (test code = RBC) 4.07 M/mm3 4.70-6.10 L HEMOGLOBIN (test code = HGB) 10.2 G/DL 10.4-14.9 L HEMATOCRIT (test code = HCT) 32.5 % 31.5-44.1 N MEAN CELL VOLUME (test code = MCV) 79.9 Fl 84.5-98.6 L MEAN CELL HGB (test code = MCH) 25.1 pg 27.0-34.2 L MEAN CELL HGB CONCETRATION ( test code = MCHC) 31.4 G/DL 31.5-34.0 L RED CELL DISTRIBUTION WIDTH (test code = RDW) 19.3 SD 11.5-14.5 H PLATELET COUNT (test code = PLT) 380.0 K/mm3 150-450 N MEAN PLATELET VOLUME (test c ode = MPV) 9.80 fL 7.0-10.5 N NEUTROPHIL % (test code = NT%) 79.8 % 40-76 H LYMPHOCYTE % (test code = LY%) 10.0 % 20.5-51.1 L MONOCYTE % (test code = MO%) 9.4 % 1.7-9.3 H EOSINOPHIL % (test code = EO%) 0.2 % 0.0-6.0 N BASOPHIL % (test code = BA%) 0.6 % 0.0-2.0 N NEUTROPHIL # (test code = NT#) 8.01 K/mm3 1.8-7.6 H LYMPHOCYTE # (test code = LY#) 1.0 K/mm3 0.6-3.2 N MONOCYTE # (test code = MO#) 0.9 K/mm3 0.3-1.1 N EOSINOPHIL # (test code = EO#) 0.0 K/mm3 0.0-0.4 N BASOPHIL # (test code = BA#) 0.1 K/mm3 0.0-0.1 N MANUAL DIFF REQUIRED (test c ode = MDIFF) NO DIFF/SCN CRITERIA - XR CHEST 1 [id number] 10:49:00Name: BRYAN BAEZ [facility] : 1985 Age/S: 33 / F [address] [address] Unit #: [id number] Loc: [place] [address] Phys: Fredis Foy MD Acct: [id number] Dis Date: Status: REG ER P MARITZA #: [phone] Exam Date: 09/14/2019 1040 FAX #: Reason: Suspected Sepsis EXAMS: CPT: [id number] XR CHEST 1 V 94439 Fluoro Time: DAP (Gy m2): Air Kerma (mGy): CHEST 1 VIEW CLINICAL INFORMATION: Suspected Sepsis COMPARISON: None FINDINGS: The lungs are well-expanded and clear. No airspace consolidation is seen. No pneumothorax or pleural effusion is present. The cardiac silhouette is normalin size. The bones are grossly intact. IMPRESSION: No acute cardiopulmonary finding. LOCATION: B2 at 1049 Reported and signed by: Ankit Fisher M.D. CC: Fredis Foy MD PAGE 1 Signed Report Name: BRYAN BAEZ [place] :1985 Age/S: 33 / F [address] [address] Unit #: [id number] Loc: [place] [address] Phys: Fredis Foy MD Acct: [id number] Dis Date: Status: REG ER PHONE #: [phone] Exam Date: 09/14/2019 1040 FAX #: Reason: Suspected Sepsis EXAMS: CPT: [id number] XR CHEST 1 V 41750 Fluoro Time: DAP (Gy m2): Air Kerma (mGy): (Continued) Technologist: Marsha Murphy, RT(R) Trnscb Date/Time: 09/14/2019 (1049) t.[email or web address] Orig Print D/T: S: 09/14/2019 (6140) PAGE 2 Signed Report Notes Date/Time Note Provider Source 2023-11-24 19:27:59 7789-28-23A27:27:59Formatting of this no te might be different from the original.Pt given printed and verbal discharge instructions regarding kidney stone, UTI, drug/alcohol abuse, encouraged hydration,Prescription provided- ciproDiscussed ibuprofen and to take with food to avoid GI distress, alternate with Tylenol to help with pain and/or feverDiscussed antibiotic therapy and to take until all completed unless adverse reaction occurs - if occurs, discontinue medication and follow up with pcp/seek medical attentionPt verbalized understanding of instructions,pt encouraged to follow up with pcpAdvised to seek medical attention for new/prolonged/worsening of symptoms,No adverse reaction to meds given in ER noted upon dischargePIV d'cd, dressing to site, catheter in tact.Awake, alert oriented, resp reg unlabored, skin w/d, pt leaving in no apparent distress with law enforcement escort- [employer] 35881-0Baudgafra department SfrlUL4220-52-04Y68:29:49[facility] NoteTXT1.2.840.506265.1.13.104.2.7.2.21296 9|[id number] for patient qdve20514-5ShkhEJEPNKSCCAIHprcsszmm C-CDA narrative [address] Vp[id number] KSJRIVVWZGJAAXXZ1877-38-43C77:29:491.2.840 .964268.1.72.3.15|1.2.840.966115.1.13.104. 2.7.2.727879_[id number] [facility] 2023-11-24 16:06:15 2099-02-72R15:06:15Formatting of this no te might be different from the original.Patient arrived via [facility]. PD officer states patient was arrested for PI, and then said her mouth was hurting. PD officer states she needs medical clearance to go to care home. Patient states she was seen 3 weeks prior for abscesses in her mouth, prescribed antibiotics but was not able to turkey picker prescription. Patient states she is also having abdominal pain, daily alcohol drinker.Patient also states her right 2nd digit is broken. 28298-0Duggatjxw department Triage onnoXD2977-52-14R73:15:16[facility] Triage noteTXT1.2.840.169876.1.13.104.2.7.2.39566 9|[id number] for patient ojql18966-8Oopnbsklt department NoteLNNARRATIVEFormatted C-CDA narrative [id number] M Dejon RN[id number] WLEKYQLSPUFDTDNS1993-74-14G86:15:161.2.840 .267673.1.72.3.15|1.2.840.168347.1.13.104. 2.7.2.727879_[id number] Lucia Bernardo Dejon POWELL [facility] 2023-10-15 07:33:10 7544-54-37F01:33:10Formatting of this no te might be different from the original.Patient given discharge instructions on bladder infection, foreign body in vagina. Given prescription x 1 for levaquin. Pt advised to follow up with pcp. Pt left ER ambulatory with officer. No signs of distress. 69483-1Ufgztwvwp department KccoCB1324-54-72H79:34:01[facility] NoteTXT1.2.840.691366.1.13.104.2.7.2.42311 9|[id number] for patient tqnq52531-9BqbdZSOWRZTNEVCWssqjaxcc C-CDA narrative [id number] M Cruz RN[id number] EMANUEL MEDICAL CENTEREAXTXMTICUFXYHEQ3436-03-51L31:34:011.2.840 .213872.1.72.3.15|1.2.840.756136.1.13.104. 2.7.2.727879_[id number] Krupa Broussard RN [facility] 2023-10-15 07:09:52 3359-11-83Y45:09:52Formatting of this no te might be different from the original.RN to RN patient care report given to Krupa POWELL 79817-7Suxgldgnv department VkbmRP8405-12-34Y60:10:06[facility] NoteTXT1.2.840.091096.1.13.104.2.7.2.46625 9|[id number] for patient qfde91617-3GnhgDWMWAIIBBISEnyhxhgsj C-CDA narrative [id number] CASTRO[id number] NWBVBFSFNMLUJGLT3314-58-45R03:10:061.2.840 .221641.1.72.3.15|1.2.840.031360.1.13.104. 2.7.2.727879_[id number] Constance Cueva RN [facility] 2023-10-15 07:05:00 7946-96-70R12:05:00Formatting of this no te might be different from the original.Officer came to [facility] and had meth pipe that pt pulled from vagina. [address]-9[address] CyueKY9036-76-73A04:20:37[facility] NoteTXT1.2.840.716791.1.13.104.2.7.2.36856 9|[id number] for patient hozw87875-2JshdQIHWCJJQXXZIslqxkrpc C-CDA narrative text[id number] DMMBBYGHIWDBWLAJ9640-99-05B19:20:371.2.840 .714735.1.72.3.15|1.2.840.772058.1.13.104. 2.7.2.727879_[id number] [facility] 2023-10-15 04:14:51 9754-05-60J44:14:51Formatting of this no te might be different from the original.Pt states that she is having left upper tooth pain for months, C/O mid abd pain that started 2 days ago, Pt was arrested tonight for having meth. And told them she was having pain. Pt states that she take ETOH shots daily. Pt asking in triage for Phenergan, pt also states she is unable to urinate because she urinated a lot earlier 09950-3Odhoozsro department Triage yxwjAM9443-35-18F71:19:54[facility] department Triage noteTXT1.2.840.636142.1.13.104.2.7.2.67782 9|[id number] for patient sxbd87785-3Ifxlrqklp department NoteLNNARRATIVEFormatted C-CDA narrative text[address] Kp[id number] IYIHHYWDILYUZVJE9486-15-51Z80:19:541.2.840 .117220.1.72.3.15|1.2.840.278793.1.13.104. 2.7.2.727879_[id number] [facility] 2019-09-14 10:16:00 INwopuqnqpk21972049H0sEW9RRdUuDr7qvUMs22 iA nOT8HeWbqOhO1uhgX99kHfbsEaFyzT0bl8F9o7Q+K2 388-77-98B55:16:00 [facility] ([facility])EMERGENCY PROVIDER REPORTREPORT#:[id number] REPORT STATUS: SignedDATE:09/14/19 TIME:1016 PATIENT: BRYAN BAEZ UNIT #: [id number]#: [id number] ROOM/BED:: 83 AGE: 33 SEX: F PCP PHYS: No Primary or Family PhysicianSERVICE AUTHOR: Fredis Foy MD * ALL edits or amendments must be made on the electronic/computer document * HPI-Bites/Stings/Envenom GeneralConfirmed Patient YesPatient Type New patientInitial Greet Date/Time 09/14/19 1016 PresentationChief Complaint BiteHx Obtained From Patient, EMSOnset Occurred Days ago (2)Symptom Duration Since onsetProgression since Onset UnchangedContext of Onset spider biteLocation FaceQuality PainfulRadiation Does not radiateSeverity: Onset MildSeverity: Current MildAssociated withDenies: Blisters, Chest pain, Dizziness, Fever, Nausea, Rash, Shaking chills, Swelling, eyes, Swelling, face, Syncope, Wheezing. Associated Other Pt denies other symptomsExacerbated by NothingRelieved by Nothing Free Text HPI NotesFree Text HPI Notes33 y/o F with PMHx of HTN is brought to ED via EMS with c/o spider bite to chin x 2 days. No further sxs were stated. Denies N/V, fever, chills, bleeding, discharge, tongue swelling and difficulty swallowing. Portions of this section were scribed by Frida Baca on 09/14/19 at 1250 Review of Systems ROS StatementsAll systems rev neg except as marked. Focused Review of SystemsConstitutionalDenies: Chills, Fatigue, Fever, Weakness - generalized. Ears/Nose/ThroatDenies: Nasal congestion, Nose bleeding, Sore throat, Throat swelling, Tongue swelling. RespiratoryDenies: Cough, non-productive, Shortness of breath, Wheezing. CardiovascularDenies: Chest pain, Dyspnea on exertion, Edema, Syncope. GIDenies: Abdominal pain, Diarrhea, Nausea, Vomiting. HematologicDenies: Bleeding, Bruising. SkinReports: Erythema, Swelling. Denies: Itching. Allergy/ImmunDenies: Itching, Rhinorrhea, Sneezing. NeurologicDenies: Dizziness, Generalized weakness, Headache. Additional Review of SystemsMusculoskeletalDenies: Back pain, Extremity pain, Extremity swelling. Portions of this section were scribed by Frida Baca on 09/14/19 at 1016 Past Medical History - AdultStated Complaint SPIDER BITEAllergiesCoded Allergies:codeine (Severe, ITCH 12/10/12)Penicillins (Intermediate, ITCHING 09/14/19) Review of Nursing Notes Rev avail, and agreePt reports no significant: Past surgical historyPast Medical History:Reports: Hypertension. Other Social History Local residentAmbulatory Status Independent Portions of this section were scribed by Frida Baca on 09/14/19 at 1016 Physical Exam Vital SignsVital SignsFirst Documented: Result Date Time Pulse Ox 100 / 1015 B/P 126/70 / 1015 B/P Mean 88 / 1015 O2 Delivery Room air 09/13 1015 Temp 36.7 / 1015 Pulse 105 / 1015 Resp 17 09/13 1015 Last Documented: Result Date Time Pulse Ox 100 / 1015 B/P 126/70 / 1015 B/P Mean 88 / 1015 O2 Delivery Room air / 1015 Temp 36.7 / 1015 Pulse 105 / 1015 Resp 17 09/13 1015 Review of Vital Signs Reviewed Focused PEGeneral/Const General/Const Awake, Alert, No acute distressEars/Nose/Throat Ears/Nose/Throat Atraumatic, Airway patent, Mucous membranes moist, Pharynx NLResp/Chest Respiratory/Chest Atraumatic, Breath sounds NL, Breath sounds = bilat, No respiratory distressCardiovascular Cardiovascular Heart rate NL, Regular rhythmSkin Skin Atraumatic, Dry, Intact Text/Dict Mpeix7mk area of erythema and induration to chin without fluctuance, discharge, bleeding or crepitus. No oral involvement or evidence of ludwigs angina. Neurologic Neurologic Oriented X3, Speech NL, No motor deficits Additional PEMS Neck Neck Atraumatic, Supple, Full range of motion, No adenopathyAbdomen/GI Abdomen/GI Atraumatic, Soft, Non-tender Portions of this section were scribed by Frida Baca on 09/14/19 at 1250 Interpretation Diagnostics Lab Results InterpretationResultsLaboratory Tests 09/14/19 1055:[Embedded Image Not Available]Laboratory Tests: 09/13 09/13 1055 1055 Chemistry Sodium (134 - 147 mmol/L) 135 Potassium (3.4 - 5.0 mmol/L) 4.3 Chloride (100 - 108 mmol/L) 103 Carbon Dioxide (21 - 32 mmol/L) 24 Anion Gap (4.0 - 15.0 GAP calc) 8.0 BUN (7 - 18 MG/DL) 18 Creatinine (0.6 - 1.0 MG/DL) 0.8 Glomerular Filtr Rate (>60 estGFR) >=60 max estimate Glucose (70 - 110 MG/DL) 70 Lactic Acid (0.4 - 2.0 mmol/L) 1.1 Calcium (8.5 - 10.1 MG/DL) 9.8 Total Bilirubin (0.2 - 1.2 MG/DL) 0.90 AST (15 - 37 Unit/L) 30 ALT (12 - 78 Unit/L) 25 Total Alk Phosphatase (45 - 117 Unit/L) 69 Total Protein (6.4 - 8.2 G/DL) 8.5 H Albumin (3.4 - 5.0 G/DL) 4.5 Globulin (GM/dL) 4.0 Albumin/Globulin Ratio (1.2 - 2.2 RATIO) 1.1 L Hematology WBC (3.5 - 11.0 K/mm3) 10.0 RBC (4.70 - 6.10 M/mm3) 4.07 L Hgb (10.4 - 14.9 G/DL) 10.2 L Hct (31.5 - 44.1 %) 32.5 MCV (84.5 - 98.6 Fl) 79.9 L MCH (27.0 - 34.2 pg) 25.1 L MCHC (31.5 - 34.0 G/DL) 31.4 L RDW (11.5 - 14.5 SD) 19.3 H Plt Count (150 - 450 K/mm3) 380.0 MPV (7.0 - 10.5 fL) 9.80 Neut % (Auto) (40 - 76 %) 79.8 H Lymph % (Auto) (20.5 - 51.1 %) 10.0 L Sutton % (Auto) (1.7 - 9.3 %) 9.4 H Eos % (Auto) (0.0 - 6.0 %) 0.2 Baso % (Auto) (0.0 - 2.0 %) 0.6 Neut # (Auto) (1.8 - 7.6 K/mm3) 8.01 H Lymph # (Auto) (0.6 - 3.2 K/mm3) 1.0 Sutton # (Auto) (0.3 - 1.1 K/mm3) 0.9 Eos # (Auto) (0.0 - 0.4 K/mm3) 0.0 Baso # (Auto) (0.0 - 0.1 K/mm3) 0.1 Add Manual Diff (CRITERIA DIFF/SCN) NO Microbiology: Date/Time Procedure - Status Source Growth 09/13 104 Blood Culture - RECD BLOOD 09/13 1025 Blood Culture - RECD BLOOD Recent Impressions:RADIOLOGY - XR CHEST 1 V 09/13 1036 Report Impression - Status: SIGNED Entered: 09/14/2019 1052 IMPRESSION: No acute cardiopulmonary finding. LOCATION: [id number] By: Erik Fisher M.D. Portions of this section were scribed by Frida Baca on 09/14/19 at 1250 Re-Evaluation MDM ED CourseMedication(s) OrderedMedication(s) Ordered:Anti-Infective Agents Sig/Vinod Start time Last Medication Dose Route Stop Time Status Admin Clindamycin Phosphate 50 ML X1ED STA 09/13 1021 DC 09/13 IV 09/13 1040 1054 Electrolytic, Caloric, And Rosa Sig/Vinod Start time Last Medication Dose Route Stop Time Status Admin Sodium Chloride 1,770 ML X1ED STA 09/13 1018 DC IV 09/13 1019 Other Sig/Vinod Start time Last Medication Dose Route Stop Time Status Admin Sodium Chloride 10 ML ASDIR PRN 09/13 1030 AC IV 10/13 1029 Portions of this section were scribed by Frida Baca on 09/14/19 at 1250 Patient Discharge Departure Vital Signs/ConditionVital SignsFirst Documented: Result Date Time Pulse Ox 100 / 1015 B/P 126/70 / 1015 B/P Mean 88 / 1015 O2 Delivery Room air / 1015 Temp 36.7 / 1015 Pulse 105 / 1015 Resp 17 09/13 1015 Last Documented: Result Date Time Pulse Ox 100 / 1015 B/P 126/70 / 1015 B/P Mean 88 / 1015 O2 Delivery Room air 09/13 1015 Temp 36.7 / 1015 Pulse 105 / 1015 Resp 17 09/13 1015 All vital signs available at the time of this entry have been reviewed. Condition Improved Clinical ImpressionClinical ImpressionPrimary Impression: Cellulitis Disposition DecisionDischarge )( Discharged to Home Yes )( Time 1251 )( Date 09/14/19 Discharge/Care PlanCounseled Regarding Diagnosis, Prescriptions, Need for follow-up, When to returnto EDPrescriptionsBactrimPrescriptions Reviewed Risks, Benefits, Alternative treatment Discharge NoteI have spoken with the patient and/or caregivers. I have explained the patient'scondition, diagnoses and treatment plan based on the information available to meat this time. I have answered the patient's and/or caregiver's questions and addressed any concerns. The patient and/or caregivers have as good an understanding of the patient's diagnosis, condition and treatment plan as can beexpected at this point. The vital signs have been stable. The patient's condition is stable and appropriate for discharge from the emergency department. The patient will pursue further outpatient evaluation with the primary care physician or other designated or consulting physician as outlined in the discharge instructions. The patient and/or caregivers are agreeable to this planof care and follow-up instructions have been explained in detail. The patient and/or caregivers have received these instructions in written format and have expressed an understanding of the discharge instructions. The patient and/or caregivers are aware that any significant change in condition or worsening of symptoms should prompt an immediate return to this or the closest emergency department or a call to 911. Supervising Physician Note Scribe StatementFrida Baca, 09/14/19 1016, scribing for and in the presence of Dr. Foy.Signed By: Frida Baca, 09/14/19 1016 Provider Scribed StatementI personally performed the services described in this documentation and reviewedthe documentation that was dictated to the scribe(s) in my presence, and it accurately records my words and actions. Frida Baca, 09/14/19 Portions of this section were scribed by Frida Baca on 09/14/19 at 1250 at 1402 RPT #: [id number] OF REPORTScenic Mountain Medical Center department alxyiw2505-62-52Y26:16:00L.[id number] 56AVAvailable for patient shziLEQTJJEZHFBMBS5652-66-36F93:05:13 [facility]"
--- NOTE | 2023-12-29 09:19 | RAD REPORT ---
EXAM DESCRIPTION: US - Abdomen Exam Limited - 12/29/2023 9:08 am CLINICAL HISTORY: ABD PAIN COMPARISON: No comparisons FINDINGS: The gallbladder demonstrates no gallstones. No pericholecystic fluid or gallbladder wall t hickening. The common bile duct is normal measuring 3 mm. The liver demonstrates no findings of intrahepatic biliary dilatation. IMPRESSION: Unremarkable examination.
--- NOTE | 2023-12-29 15:04 | ER ---
Nurse's Notes [facility] Name: Kim Starr Age: 38 yrs Sex: Female : 1985 Arrival Date: 12/29/2023 Time: 08:30 Bed Waiting Private MD: Diagnosis: Assessment: 12/28 09:58 General: Attempted multiple times to locate pt. Per registration pt returned from ultrasound and left the ER ambulatory, walking towards the front of the hospital. ED Course: 08:35 Patient arrived in ED. mr 08:36 Linwood Boss MD is Attending Physician. roney 09:10 Abdomen Limited US In Process Unspecified. EDMS Administered Medications: No medications were administered Outcome: 10:00 Patient left the ED. Signatures: Dispatcher [employer] EDMS Linwood Boss MD MD cha Rivera Kim, Reg Reg Morena Brand, RN RN
== END 2023-12-29 10:00 | disposition left against medical advice (07) ==
LOC: ER 08:30
DX: Z53.21 Procedure and treatment not carried out due to patient leaving prior to being seen by health care provider (principal)
CPT/HCPCS: 76705

== ENCOUNTER 2025-04-16 19:57 | Emergency (ER) | payer SELFPAY ==
--- OUTSIDE RECORDS SUMMARY | 2025-04-16 20:07 | XMS REPORT | Continuity of Care Document ---
Author Name Unknown Address [address] [facility] [place] [address] [facility] Address [address] [facility] [address] [place] [address] Care Team Providers Care Client Executive Name Role Phone Pcp, Patient Does Not Have A Primary Care Physic yanick Toro Walden Attending Clinician [phone] Cami MAC, Oriana Jefferson Attending Clinician [phone] Michelle PARISH, Juan Valdez Attending Clinician [phone] Doctor Unassigned, [place] Attending Clinician U BIANCA Gonzalez Attending Clinician Unavailab alyssa Pacheco MD, Bianca Attending Clinician [phone] SHILOH WRGIHT Attending Clinician Unavailab Shiloh Prescott DO Attending Clinician CASSIE FISHER Attending Clinician Unavailable Cassie Lawson Attending Clinician CAYDEN LAO Attending Clinician Unavailable Cayden Metcalf Attending Clinician [phone] ELIZABETH URIBE Attending Clinician Unavailable Elizabeth Uribe DO Attending Clinician [phone] Fredis Foy Attending Clinician Unavaila ble UNDEFINED [...] malnutriti on Disease Active 03-04 00:00: 00 [facility] Allergies, Adverse Reactions, Alerts Allergy Name Allergy Type Status Severity Reaction(s) Onset Date Inactive Date Treating Clinician Comments Source PENICILL IN DRUG INGREDI Active Unknown-Cmnt 08-18 00:00: 00 [facility] Penicill in Propensi ty to adverse reaction s Active Unknown - See comments 08-18 00:00: 00 [facility] Penicill ins DA Active MO 09-13 00:00: 00 [facility] Penicill ins DA Active MO ITCHING 09-13 00:00: 00 [facility] codeine DA Active SV 12-10 00:00: 00 [facility] codeine DA Active SV ITCH 12-10 00:00: 00 [facility] Codeine Propensi ty to adverse reaction s Active Nausea and/or Vomiting 10-03 00:00: 00 [facility] CODEINE DRUG INGREDI Active N/V 10-03 00:00: 00 [facility] Social History Social Habit Start Date Stop Date Quantity Comments Source History of tobacco use Cigarette Smoker [facility] Sexual orientation U niversity [facility] Alcoholic beverage intake 2024-07-27 00:00:00 2024-07-27 00:00:00 Current drinker of alcohol (finding) [facility] History of Social function 2023-11-24 00:00:00 2023-11-24 [...] 0.4 mg, Oral, DAILY, First dose on Paula 11/25/23 at 0900, Until Discontinu ed, Routine [facility] ketorolac (TORADOL) injection 15 mg 11-24 00:30: 00 11-23 23:47 :00 No 15mg 15 mg, Slow IV Push, ONCE, 1 dose, On 11/24/23 at 1930, Routine [facility] iopamidol (ISOVUE 370-500 mL) injection 80 mL 11-23 23:15: 00 11-23 23:15 :00 No [id number] 80mL 80 mL, Intravenou s, ONCE, 1 dose, On Wed11/24/23 at 1815, Routine Univers [facility] NaCl 0.9% (NS) bolus infusion 1,000 mL 11-23 22:15: 00 11-24 00:26 :00 No 1000mL at 999 mL/hr, 1,000 mL, IV Infusion, ONCE, 1 dose, On Wed11/24/23 at 1715, JAI [facility] ciprofloxac in in 5 % dextrose (CIPRO) piggyback 400 mg 11-23 22:15: 00 11-23 22:59 :00 No 400mg 400 mg, IV Piggyback, ONCE, 1 dose, On Wed11/24/23 at 1715, Administer over 60 Minutes, 200 mL, Reason for Anti-Infec tive: Documented Infection, Documented Infection Site: Urine, Duration of Therapy: Once (ED) [facility] ketorolac 10 mg tablet 11-23 00:00: 00 Yes [id number] 10mg Take 1 tablet by mouth every 6 (six) hours as needed for Pain (scale 4-6) or Pain (scale 7-10). [facility] tamsulosin 0.4 mg 24 hr capsule 11-23 00:00: 00 Yes [id number] .4mg Take 1 capsule by mouth at bedtime. [facility] ciprofloxac in HCl 250 mg tablet 11-23 00:00: 00 Yes [id number] 250mg Take 1 tablet by mouth in the morning and 1 tablet in the evening. [facility] iopamidol (ISOVUE 370-500 mL) injection 100 mL 10-14 12:45: 00 10-14 12:45 :00 No [id number] 100mL 100 mL, Intravenou s, ONCE, 1 dose, On Wed10/15/23 at 0745, Routine [facility] acetaminoph en (TYLENOL) tablet 1,000 mg 10-14 12:45: 00 10-14 11:37 :00 No 1000mg 1,000 mg, Oral, ONCE, 1 dose, On Wed10/15/23 at 0745, Routine [facility] levoFLOXaci n (LEVAQUIN) tablet 500 mg 10-14 11:45: 00 10-14 11:37 :00 No 500mg 500 mg, Oral, ONCE, 1 dose, On Wed10/15/23 at 0645, JAI
Re ason for Anti-Infec tive: Documented Infection< br>Documen dione Infection Site: Urine
D uration of Therapy: Other (see Comments) [facility] levoFLOXaci n 500 mg tablet 10-14 00:00: 00 11-23 00:00 :00 No [id number] 500mg Take 1 tablet by mouth every 24 (twenty-fo ur) hours. [facility] acetaminoph en (TYLENOL) tablet 650 mg 07-19 18:15: 00 07-19 19:05 :00 No 650mg 650 mg, Oral, ONCE, 1 dose, On 07/19/22 at 1215, [facility] No known medications 07-19 10:58: 45 No No known medication s [facility] acetaminoph en (TYLENOL) tablet 650 mg 07-19 04:30: 00 07-19 04:20 :00 No 650mg 650 mg, Oral, ONCE, 1 dose, On 07/18/22 at 2230, [facility] No known medications 07-18 22:17: 15 No No known medication s [facility] ibuprofen (IBU) tablet 600 mg 03-30 04:00: 00 03-30 03:59 :00 No 600mg 600 mg, Oral, ONCE, 1 dose, On 03/29/22 at 2300, [facility] No known medications 03-29 22:48: 44 No No known medication s [facility] KCL (KLOR-CON M20) tablet 20 mEq 10-04 01:30: 00 10-04 00:48 :00 No 20meq 20 mEq, Oral, ONCE, 1 dose, On Wed10/03/21 at 2030, [facility] NaCl 0.9% (NS) bolus infusion 1,000 mL 10-04 01:00: 00 10-04 00:51 :00 No 1000mL at 999 mL/hr, 1,000 mL, IV Infusion, ONCE, 1 dose, On Wed10/03/21 at 1999, [facility] ondansetron (ZOFRAN (PF)) injection 4 mg 10-04 01:00: 00 10-03 23:58 :00 No 4mg 4 mg, Slow IV Push, ONCE, 1 dose, On Wed10/03/21 at 1999, [facility] metoprolol tartrate 50 mg tablet 10-03 18:45: 50 10-03 00:00 :00 No 50mg Take 50 mg by mouth 2 (two) times daily. [facility] Hydrocodone -Acetaminop hen (VICODIN ES) 7.5-300 mg tablet 10-03 18:45: 32 10-03 00:00 :00 No Take by mouth as needed. [facility] HYDROcodone -acetaminop hen (NORCO 5) 5-325 mg tablet 1 tablet 08-19 09:15: 00 08-19 08:06 :00 No 1{tbl} 1 tablet, Oral, ONCE, 1 dose, On Wed08/19/21 at 0315, [facility] iohexol (OMNIPAQUE 350 BULK-500 mL) injection 100 mL 08-19 07:00: 00 08-19 05:44 :00 No [id number] 100mL 100 mL, Intravenou s, ONCE, 1 dose, On Wed08/19/21 at 0100, Routine [facility] FENTanyl PF (SUBLIMAZE (PF)) injection 50 mcg 08-19 05:45: 00 08-19 05:04 :00 No 50ug 50 mcg, Slow IV Push, ONCE, 1 dose, On Wed08/18/21 at 2345, STAT [facility] Vancomycin 750 mg in NaCl 0.9% (NS) [...] Tissue
Duration of Therapy: Other (see Comments) [facility] HYDROcodone -acetaminop hen (NORCO 5) 5-325 mg tablet 1 tablet 08-19 05:00: 00 08-19 04:06 :00 No 1{tbl} 1 tablet, Oral, ONCE, 1 dose, On Wed08/18/21 at 2300, JAI [facility] doxycycline hyclate 100 mg capsule 08-19 00:00: 00 10-03 00:00 :00 No [id number] 100mg Take 1 capsule by mouth 2 (two) times daily. [facility] ibuprofen 600 mg tablet 08-19 00:00: 00 10-03 00:00 :00 No [id number] 600mg Take 1 tablet by mouth every 6 (six) hours as needed for Pain (scale 4-6). [facility] mupirocin 2 % ointment 08-19 00:00: 00 10-03 00:00 :00 No [id number] Apply to area(s) 3 (three) times daily. [facility] clindamycin 150 mg capsule 08-19 00:00: 00 08-27 05:59 :00 No [id number] 450mg Take 3 capsules by mouth 4 (four) times daily for 7 days. [facility] sulfamethox azole-trime thoprim 800-160 mg per tablet 11-08 00:00: 00 10-03 00:00 :00 No [id number] 1{tbl} Take 1 tablet by mouth every 12 (twelve) hours. [facility] mupirocin (BACTROBAN) 2 % ointment 11-08 00:00: 00 10-03 00:00 :00 No [id number] Apply to area(s) 3 (three) times daily. [facility] ibuprofen 600 mg tablet 11-08 00:00: 10-03 00:00 :00 No [id number] 600mg Take 1 tablet by mouth every 6 (six) hours as needed for Pain (scale 4-6). [facility] metoprolol tartrate 50 mg tablet 01-28 04:26: 59 Yes 50mg Take 50 mg by mouth 2 (two) times daily. [facility] Hydrocodone -Acetaminop hen (VICODIN ES) 7.5-300 mg tablet 01-28 04:26: 59 Yes Take by mouth as needed. [facility] metoprolol tartrate 50 mg tablet 01-27 23:26: 59 Yes 50mg Take 50 mg by mouth 2 (two) times daily. [facility] Hydrocodone -Acetaminop hen (VICODIN ES) 7.5-300 mg tablet 01-27 23:26: 59 Yes Take by mouth as needed. [facility] Immunizations Ordered Immunization Name Filled Immunization Name Date Status Comments Source TD, NOS 2023-11-24 16:05:00 Completed [facility] TD, NOS 2023-10-15 04:47:00 Completed [facility] Td 2022-03-29 00:00:00 [facility]pleted [facility] Systolic blood pressure 2023-11-25 00:25:00 137 mm[Hg] [facility] Diastolic blood pressure 2023-11-25 00:25:00 93 mm[Hg] [facility] Heart rate 2023-11-25 00:25:00 81 /min [facility] Body temperature 2023-11-25 00:25:00 36.06 Chantelle [facility] Respiratory rate 2023-11-25 00:25:00 18 /min [facility] Oxygen saturation in Arterial blood by Pulse oximetry 2023-11-25 00:25:00 100 /min [facility] Body height 2023-11-24 21:16:00 167.6 cm [facility] Body weight 2023-11-24 21:16:00 45.36 kg [facility] BMI 2023-11-24 21:16:00 16.14 kg/m2 [facility] Systolic blood pressure 2023-10-15 09:20:00 143 mm[Hg] [facility] Diastolic blood pressure 2023-10-15 09:20:00 77 mm[Hg] [facility] Heart rate 2023-10-15 09:20:00 87 /min [facility] Body temperature 2023-10-15 09:20:00 37.11 Chantelle [facility] Respiratory rate 2023-10-15 09:20:00 18 /min [facility] Body height 2023-10-15 09:20:00 167.6 cm [facility] Body weight 2023-10-15 09:20:00 48.988 kg [facility] BMI 2023-10-15 09:20:00 17.43 kg/m2 [facility] Oxygen saturation in Arterial blood by Pulse oximetry 2023-10-15 09:20:00 98 /min [facility] Systolic blood pressure 2022-07-19 16:59:00 127 mm[Hg] [facility] Diastolic blood pressure 2022-07-19 16:59:00 84 mm[Hg] [facility] Heart rate 2022-07-19 16:59:00 80 /min [facility] Body temperature 2022-07-19 16:59:00 36.39 Chantelle [facility] Respiratory rate 2022-07-19 16:59:00 14 /min [facility] Body height 2022-07-19 16:59:00 167.6 cm [facility] Body weight 2022-07-19 16:59:00 49.896 kg [facility] BMI 2022-07-19 16:59:00 17.75 kg/m2 [facility] Oxygen saturation in Arterial blood by Pulse oximetry 2022-07-19 16:59:00 100 /min [facility] Systolic blood pressure 2022-07-19 04:16:00 130 mm[Hg] [facility] Diastolic blood pressure 2022-07-19 04:16:00 82 mm[Hg] [facility] Heart rate 2022-07-19 04:16:00 87 /min [facility] Body temperature 2022-07-19 04:16:00 36.28 Chantelle [facility] Respiratory rate 2022-07-19 04:16:00 19 /min [facility] Body height 2022-07-19 04:16:00 167.6 cm [facility] Body weight 2022-07-19 04:16:00 48.988 kg [facility] BMI 2022-07-19 04:16:00 17.43 kg/m2 [facility] Oxygen saturation in Arterial blood by Pulse oximetry 2022-07-19 04:16:00 99 /min [facility] Systolic blood pressure 2022-03-30 03:54:00 139 mm[Hg] [facility] Diastolic blood pressure 2022-03-30 03:54:00 78 mm[Hg] [facility] Heart rate 2022-03-30 03:54:00 85 /min [facility] Body temperature 2022-03-30 03:54:00 36.72 Chantelle [facility] Respiratory rate 2022-03-30 03:54:00 20 /min [facility] Body height 2022-03-30 03:54:00 167.6 cm [facility] Body weight 2022-03-30 03:54:00 55.293 kg [facility] BMI 2022-03-30 03:54:00 19.68 kg/m2 [facility] Oxygen saturation in Arterial blood by Pulse oximetry 2022-03-30 03:54:00 98 /min [facility] Heart rate 2021-10-04 00:30:00 83 /min [facility] Respiratory rate 2021-10-04 00:30:00 14 /min [facility] Oxygen saturation in Arterial blood by Pulse oximetry 2021-10-04 00:30:00 99 /min [facility] Systolic blood pressure 2021-10-04 00:00:00 131 mm[Hg] [facility] Diastolic blood pressure 2021-10-04 00:00:00 91 mm[Hg] [facility] Body temperature 2021-10-03 23:41:00 36.61 Chantelle [facility] Body weight 2021-10-03 23:41:00 56.7 kg [facility] BMI 2021-10-03 23:41:00 19.58 kg/m2 [facility] Heart rate 2021-08-19 08:33:00 92 /min [facility] Respiratory rate 2021-08-19 08:33:00 18 /min [facility] Oxygen saturation in Arterial blood by Pulse oximetry 2021-08-19 08:33:00 97 /min [facility] Systolic blood pressure 2021-08-19 05:30:00 123 mm[Hg] [facility] Diastolic blood pressure 2021-08-19 05:30:00 83 mm[Hg] [facility] Body weight 2021-08-19 03:33:00 47.628 kg [facility] BMI 2021-08-19 03:33:00 16.45 kg/m2 [facility] Body temperature 2021-08-19 03:33:00 36.17 Chantelle [facility] Body height 2021-08-19 03:33:00 170.2 cm [facility] Systolic blood pressure 2021-08-03 08:57:46 151 mm[Hg] [facility] Diastolic blood pressure 2021-08-03 08:57:46 114 mm[Hg] [facility] Heart rate 2021-08-03 08:57:46 98 /min [facility] Body temperature 2021-08-03 08:57:46 37.11 Chantelle [facility] Respiratory rate 2021-08-03 08:57:46 18 /min [facility] Oxygen saturation in Arterial blood by Pulse oximetry 2021-08-03 08:57:46 95 /min [facility] Body height 2021-08-03 08:56:00 167.6 cm [facility] Body weight 2021-08-03 08:56:00 58.968 kg [facility] BMI 2021-08-03 08:56:00 20.98 kg/m2 [facility] Systolic blood pressure 2021-02-22 08:38:00 143 mm[Hg] [facility] Diastolic blood pressure 2021-02-22 08:38:00 87 mm[Hg] [facility] Heart rate 2021-02-22 08:38:00 52 /min [facility] Respiratory rate 2021-02-22 08:38:00 14 /min [facility] Body height 2021-02-22 08:38:00 167.6 cm [facility] Body weight 2021-02-22 08:38:00 58.968 kg [facility] BMI 2021-02-22 08:38:00 20.98 kg/m2 [facility] Oxygen saturation in Arterial blood by Pulse oximetry 2021-02-22 08:38:00 94 /min [facility] Procedures Procedure Date / Time Performed Performing Clinician Source POCT TEST 2023-11-24 21:51:00 Oriana Almanza [facility] LIPASE 2023-11-24 21:50:00 Oriana Almanza [facility] COMP. METABOLIC PANEL ([id number]) 2023-11-24 21:50:00 Oriana Almanza [facility] ETHANOL 2023-11-24 21:50:00 Oriana Almanza [facility] CBC WITH DIFF 2023-11-24 21:50:[address] [facility] URINALYSIS 2023-11-24 21:50:00 Oriana Almanza [facility] URINE DRUG (IMMUNOASSAY) - COMPREHENSIVE DRUG SCREEN W/O REFLEX 2023-11-24 21:50:00 Oriana Almanza [facility] LIPASE 2023-10-15 10:31:00 Juan Martinez [facility] COMP. METABOLIC PANEL ([id number]) 2023-10-15 10:31:00 Juan Martinez [facility] CBC WITH DIFF 2023-10-15 10:31:[address] [facility] URINALYSIS 2023-10-15 09:50:00 Juan Martinez [facility] EMERGENCY DEPARTMENT DOCUMENTS 2022-09-07 06:01:00 Doctor Unassigned, [place] [facility] XR ABDOMEN ACUTE SERIES 2022-07-19 18:38:00 Bianca Cota [facility] COVID-19 (ID NOW RAPID TESTING) 2022-07-19 18:24:00 Bianca Pacheco [facility] LIPASE 2021-10-03 23:53:00 José Mgiuel [facility] TROPONIN I 2021-10-03 23:53:00 José Miguel [facility] COMP. METABOLIC PANEL ([id number]) 2021-10-03 23:53:00 Cassie Fisher [facility] ETHANOL 2021-10-03 23:53:00 José Miguel [facility] CBC WITH DIFF 2021-10-03 23:53:[address] [facility] N-TERMINAL PRO-BNP 2021-10-03 23:53:00 Blanca [facility] [...] [facility] UR[facility]ALYSIS 2021-08-19 05:23:00 Cayden Lao [facility] URINE DRUG (IMMUNOASSAY) - COMPREHENSIVE DRUG SCREEN W/O REFLEX 2021-08-19 05:23:00 Cayden Lao [facility] XR HAND 3+ VW LEFT 2021-08-19 04:53:00 Cayden Lao [facility] BLOOD CULTURE SCREEN 2021-08-19 04:21:00 Cayden Lao [facility] COMP. METABOLIC PANEL ([id number]) 2021-08-19 04:20:00 Cayden Lao [facility] CBC WITH DIFF 2021-08-19 04:20:00 Cayden Lao [facility] LACTIC ACID WHOLE BLOOD 2021-08-19 04:19:00 Lao, Me helen Betina [facility] Encounters Start Date/Time End Date/Time Encounter Type Admission Type Attending Clinicians Care Facility Care Department Encounter ID Source 2019-09-14 10:13:00 Inpatient HCAPM HEYDI [id number] [facility] 2024-07-27 05:47:27 2024-07-27 23:59:00 Hospital Encounter Toro Walden [facility] 1.2.840.114 350.1.13.10 4.2.7.2.686 [id number] [facility] 2023-11-24 16:05:00 2023-11-24 19:29:00 Emergency Rjbryan Oriana G [facility] 1.2.840.114 350.1.13.10 4.2.7.2.686 [id number] [facility] 2023-10-15 04:47:00 2023-10-15 07:34:00 Emergency MagojarettandressaJuan [facility] 1.2.840.114 350.1.13.10 4.2.7.2.686 [id number] [facility] 2022-09-07 00:00:00 2022-09-07 00:00:00 Orders Only Doctor Unassigned, [place] [facility] 1.2.840.114 350.1.13.10 4.2.7.2.686 [id number] [facility] 2022-07-19 10:56:00 2022-07-19 13:41:00 Emergency X BIANCA PACHECO [facility] ERT [id number] [facility] 2022-07-19 10:56:00 2022-07-19 13:41:00 Emergency Bianca Pacheco [facility] 1.2.840.114 350.1.13.10 4.2.7.2.686 [id number] [facility] 2022-07-18 22:16:00 2022-07-18 22:52:00 Emergency X SHILOH WRIGHT [facility] ERT [id number] [facility] 2022-07-18 22:16:00 2022-07-18 22:52:00 Emergency Shiloh Wright [facility] 1.2840.114 350.1.13.10 4.2.7.2.686 [id number] [facility] 2022-03-29 22:56:00 2022-03-29 23:12:00 Emergency X SHILOH WRIGHT [facility] ERT [id number] [facility] 2022-03-29 22:56:00 2022-03-29 23:12:00 Emergency Shiloh Wright [facility] 1.2840.114 350.1.13.10 4.2.7.2.686 [id number] [facility] 2021-10-03 18:40:00 2021-10-03 19:56:00 Emergency X CASSIE FISHER [facility] ERT [id number] [facility] 2021-10-03 18:40:00 2021-10-03 19:56:00 Emergency Cassie Fisher [facility] 1.2840.114 350.1.13.10 4.2.7.2.686 [id number] [facility] 2021-08-18 21:38:00 2021-08-19 02:43:00 Emergency X LAOCAYDEN [facility] ERT [id number] [facility] 2021-08-18 21:38:00 2021-08-19 02:43:00 Emergency Cayden Lao [facility] 1.2840.114 350.1.13.10 4.2.7.2.686 [id number] [facility] 2021-08-03 03:33:00 2021-08-03 03:34:00 Emergency ELIZABETH PALM [facility] ERT [id number] [facility] 2021-08-03 03:33:00 2021-08-03 03:34:00 Emergency Elizabeth Uribe [facility] 1.2.840.114 350.1.13.10 4.2.7.2.686 [id number] [facility] 2021-07-30 14:36:00 2021-07-30 17:19:00 Emergency ELIZABETH PALM [facility] ERT [id number] [facility] 2021-07-30 14:36:00 2021-07-30 17:19:00 Emergency Elizabeth Uribe [facility] 1.2.840.114 350.1.13.10 4.2.7.2.686 [id number] [facility] 2021-02-22 03:41:00 2021-02-22 04:34:00 Emergency Juan Martinez [facility] 1.2.840.114 350.1.13.10 4.2.7.2.686 [id number] [facility] 2021-02-22 03:41:00 2021-02-22 03:41:00 Emergency X [facility] ERT [id number] [facility] 2019-09-15 00:24:00 2019-09-15 00:24:00 Outpatient Fredis Foy [facility] OUTD [id number] [facility] 2019-05-12 23:26:57 2019-05-12 23:54:00 Emergency X SHILOH WRIGHT [facility] ERT [id number] [facility] Results Test Description Test Time Test Comments Results Result Co mments Source [facility] 22:18:04* Test Item Value Reference Range Interpretation Comme nts ALCOHOL (test code = 4823565577) 209 mg/dL CECIL (test code = CECIL) <10 [id number] Toxic>100 Depression of MAGNETIC TAPE WINDER>400 Fatalities Reported [facility]. METABOLIC PANEL ([id number])2023-11-24 22:17:23* Test Item Value Reference Range Interpretation Comme nts NA (test code = 6881684037) 140 mmol/L 135-145 K (test code = 3787808052) 3.3 mmol/L 3.5-5.0 L CL (test code = 0890435567) 107 mmol/L 98-108 CO2 TOTAL (test code = 2330572725) 21 mmol/L 23-31 L AGAP (test code = 8660380499) 12 2-16 BUN (test code = 0310515990) 16 mg/dL 7-23 GLUCOSE (test code = 8321734817) 88 mg/dL 70-110 CREATININE (test code = 2160-0) 0.83 mg/dL 0.50-1.04 TOTAL BILI (test code = 4077383608) 0.9 mg/dL 0.1-1.1 CALCIUM (test code = 4101921454) 8.4 mg/dL 8.6-10.6 L T PROTEIN (test code = 4455110313) 7.6 g/dL 6.3-8.2 ALBUMIN (test code = 3148645280) 4.0 g/dL 3.5-5.0 ALK PHOS (test code = 2942376422) 112 U/L 34-122 ALTv (test code = 1742-6) 16 U/L 5-35 AST(SGOT) (test code = 9074639584) 41 U/L 13-40 H eGFR (test code = 20778-8) 91.5 mL/min/1.73m2 CKD-EPI eGFR (2020). Assuming creatinine has been stable day-to-day for at least three months, the eGFR indicates Category G1 (>= 90 mL/min/1.73 m2) Lab Interpretation (test code = 33494-7) [facility]normal [facility] 22:17:08* Test Item Value Reference Range Interpretation Comme nts LIPASE (test code = 9381207305) 96 U/L 0-220 Lab Interpretation (test cod e = 55309-7) Normal [facility] [id number] 21:51:00* Test Item Value Reference Range Interpretation Comme nts POCT PREG (test code = 1605) Negative On board controls acceptable with C Line (test code = 3574) Yes POCT PREG LOT # (test code = 3575) [id number] POCT PREG TEST DATE ( test code = 3576) 2024-10-17 Lab Interpretation (test cod e = 90619-8) [facility] [id number] 11:25:41* Test Item Value Reference Range Interpretation [...] g/dL 31.6-35.1 L RDW-SD (test code = 94675-7) 39.2 fL 39.0-49.9 RDW-CV (test code = 788-0) 16.7 % 12.0-15.5 H PLT (test code = 777-3) 318 166-358 MPV (test code = 08607-9) 9.0 fL 9.5-12.9 L NRBC/100 WBC (test code = 4090997176) 0.0 0.0-10.0 NRBC x10^3 (test code = 9106199186) See_Comment [Automated messa ge] The system which generated this result transmitted reference range: 10*3/?L. The reference range was not used to interpret this result as normal/abnormal. SEG % (test code = 07021-4) 72 % 33-76 LYMPH % (test code = 28356-6) 16 % 14-54 MONO % (test code = 82692-0) 12 % 0-4 H ANC (test code = 753-4) 3.48 10*3/uL 1.88-7.09 Lab Interpretation (test code = 60622-1) [facility]normal [facility] Metabolic Panel (52386)2023-10-15 11:07:15* Test Item Value Reference Range Interpretation Comme nts NA (test code = 4026604401) 137 mmol/L 135-145 K (test code = 0366874946) 3.3 mmol/L 3.5-5.0 L CL (test code = 2361697540) 104 mmol/L 98-108 CO2 TOTAL (test code = 3587196863) 22 mmol/L 23-31 L AGAP (test code = 8258332781) 11 2-16 BUN (test code = 1965725784) 18 mg/dL 7-23 GLUCOSE (test code = 8475520254) 99 mg/dL 70-110 CREATININE (test code = 2160-0) 0.78 mg/dL 0.50-1.04 TOTAL BILI (test code = 6789559401) 0.8 mg/dL 0.1-1.1 CALCIUM (test code = 2165872158) 9.1 mg/dL 8.6-10.6 T PROTEIN (test code = 5023407553) 8.3 g/dL 6.3-8.2 H ALBUMIN (test code = 9205213189) 4.3 g/dL 3.5-5.0 ALK PHOS (test code = 6901889641) 95 U/L 34-122 ALTv (test code = 1742-6) 17 U/L 5-35 AST(SGOT) (test code = 6168732806) 38 U/L 13-40 eGFR (test code = 41910-8) 98.6 mL/min/1.73m2 CKD-EPI eGFR (2020). Assuming creatinine has been stable day-to-day for at least three months, the eGFR indicates Category G1 (>= 90 mL/min/1.73 m2) Lab Interpretation (test code = 63654-0) [facility]2024-[facility]-05 11:06:54* Test Item Value Reference Range Interpretation Comme nts LIPASE (test code = 2370155535) 124 U/L 0-220 Lab Interpretation (test cod e = 66754-8) [facility]OP[facility]IN [id number] 00:32:37* Test Item Value Reference Range Interpretation Comments TROPONIN I (test code = 7984246752) 0.002 ng/mL See_Comment [Automated message] The system [...] of biotin. Lab Interpretation (test code = 24771-8) Normal [facility]aleN-TERMINAL OIS-QGX1627-10-26 00:29:16* Test Item Value Reference Range Interpretation Comme nts NT-proBNP (test code = 1475502170) 223 pg/mL See_Comment H [Automated message] The system which generated this result transmitted reference range: <=125. The reference range was not used to interpret this result as normal/abnormal. CECIL (test code = CECIL) Biotin has been reported to cause a negative bias, interpret results relative to patient's use of biotin. Lab Interpretation (test code = 00374-6) Abnormal [facility]aleETHANOL2022-03-26 00:21:13* Test Item Value Reference Range Interpretation Comme nts ALCOHOL (test code = 8978445846) 72 mg/dL CECIL (test code = CECIL) <10 Llyritbh61-788 Toxic>100 Depression of MAGNETIC TAPE WINDER>400 Fatalities Reported [facility]. METABOLIC PANEL (82856)2021-10-04 00:20:37* Test Item Value Reference Range Interpretation Comme nts NA (test code = 1528456608) 137 mmol/L 135-145 K (test code = 0521092760) 3.3 mmol/L 3.5-5.0 L CL (test code = 3777367716) 105 mmol/L 98-108 CO2 TOTAL (test code = 8011836689) 21 mmol/L 23-31 L AGAP (test code = 1856235107) 2-16 BUN (test code = 2775898529) 14 mg/dL 7-23 GLUCOSE (test code = 6475214218) 89 mg/dL 70-110 CREATININE (test code = 7128509893) 0.77 mg/dL 0.50-1.04 TOTAL BILI (test code = 1482755637) 0.7 mg/dL 0.1-1.1 CALCIUM (test code = 1736810935) 8.6 mg/dL 8.6-10.6 T PROTEIN (test code = 0629962948) 7.4 g/dL 6.3-8.2 ALBUMIN (test code = 2253003049) 4.4 g/dL 3.5-5.0 ALK PHOS (test code = 9054489527) 72 U/L 34-122 ALTv (test code = 1742-6) 16 U/L 5-35 AST(SGOT) (test code = 4747473467) 32 U/L 13-40 eGFR (test code = 6649547439) mL/min/1.73m2 CECIL (test code = CECIL) Association [...] imaging tests). Lab Interpretation (test code = 83867-5) Abnormal [facility]ale[facility]IPASE2022-03-26 00:20:17* Test Item Value Reference Range Interpretation Comme nts LIPASE (test code = 2783848230) 150 U/L 0-220 Lab Interpretation (test cod e = 25283-8)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
[2025-04-16] MEDS ORDERED: ONDANSETRON 4 MG/2 ML VIAL ONE (20:37)
[2025-04-16] MEDS ORDERED: KETOROLAC 30 MG/ML INJ ONE (20:38)
[2025-04-16 20:54] LABS: Absolute Lymphocytes (CBC) 1.2 K/uL (0.7-4.9); Hematocrit 27.8 % (36.0-45.0); Hemoglobin 8.6 g/dL (12.0-15.0); MCH 21.2 pg (27.0-35.0); MCHC 31.0 g/dL (32.0-36.0); MCV 68.4 fL (80-100); MPV 8.2 fL (7.6-11.3); Nucleated RBC Absolute Count 0.0 (0-0); Nucleated Red Blood Cells % 0.2 % (0-0); RBC Red Blood Cell Count 4.07 M/uL (3.86-4.86); White Blood Count 4.00 thou/uL (4.3-10.9)
[2025-04-16 21:04] LABS: PT Prothrombin Time 12.5 SECONDS (10-13.0); Protime INR 1.11
[2025-04-16 21:23] LABS: ALT/SGPT 74.0 U/L (13-56); Albumin 2.9 g/dL (3.4-5.0); Albumin/Globulin Ratio 0.9 (1.1-1.8); Alkaline Phosphatase 102.0 U/L (45-117); Anion Gap 10.0 mEq/L (5.0-15.0); BUN Blood Urea Nitrogen 9.0 mg/dL (7-18); Bilirubin Indirect, Calculated 0.2 mg/dL (0.2-0.8); Globulin 3.4 g/dL (2.3-3.5); Glucose Level 93.0 mg/dL (74-106); NT PRO-BNP 213.0 pg/mL (<125); Troponin High Sensitivity 5.1 pg/mL (<58.9)
--- NOTE | 2025-04-16 21:26 | RAD REPORT ---
EXAM: Chest Single View HISTORY: 39 years Female CHEST PAIN COMPARISON: No prior exams FINDINGS: LUNGS/PLEURA: The lungs are clear. No pleural effusions or pneumothorax. No pulmonary edema. CARDIAC/MEDIASTINUM: The cardiac silhouette is within normal limits. UPPER ABDOMEN: No significant abnormality. BONES: No acute abnormality. LINES/TUBES/OTHER: N/A IMPRESSION: No evidence of acute cardiopulmonary disease.
[2025-04-16 21:29] LABS: AST/SGOT 108.0 U/L (15-37); Magnesium 1.9 mg/dL (1.6-2.4); Potassium 3.0 mEq/L (3.5-5.1)
[2025-04-16 21:34] LABS: Anisocytosis 2+; Hypochromasia 1+; Macrocytosis SLIGHT; Microcytosis 1+; Ovalocytes SLIGHT; White Blood Cell Scan OK (OK)
[2025-04-16 21:35] LABS: Stomatocytes 1+
[2025-04-16 21:36] LABS: Blood Morphology Comment NOTED (NOT SEEN)
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
[2025-04-16 23:15] VITALS: BP 128/81; O2SAT 99
== END 2025-04-16 23:04 | disposition home or self-care (01) ==
LOC: ER 19:57
DX: R07.89 Other chest pain (principal); D64.9 Anemia, unspecified; N92.0 Excessive and frequent menstruation with regular cycle; F10.129 Alcohol abuse with intoxication, unspecified; Y90.6 Blood alcohol level of 120-199 mg/100 ml; T76.21XA Adult sexual abuse, suspected, initial encounter
CPT/HCPCS: 36415; 71045; 80048; 80076; 82077; 83735; 83880; 84484; 85025; 85610; 93005; 96374; 96375; 99285; J1790; J1885; J2405

== ENCOUNTER 2025-04-21 19:39 | Emergency (ER) | payer SELFPAY ==
--- OUTSIDE RECORDS SUMMARY | 2025-04-21 19:45 | XMS REPORT | Continuity of Care Document ---
Author Name Unknown Address [address] [facility]. 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 Name Role Phone Pcp, Patient Does Not Have A Primary Care Physic yanick Toro Walden Attending Clinician Cami MAC, Oriana Jefferson Attending Clinician [phone] Michelle PARISH, Juan Valdez Attending Clinician [phone] Doctor Unassigned, [place] Attending Clinician U BIANCA Gonzalez Attending Clinician Unavailab alyssa Pacheco MD, Bianca Attending Clinician [phone] SHILOH WRIGHT Attending Clinician Unavailab Shiloh Prescott DO Attending Clinician CASSIE FISHER Attending Clinician Unavailable Cassie Lawson Attending Clinician [phone] CAYDEN LAO Attending Clinician Unavailable Cayden Metcalf Attending Clinician [phone] ELIZABETH URIBE Attending Clinician Unavailable Elizabeth Uribe DO Attending Clinician [phone] Fredis Foy Attending Clinician Unavaila ble UNDEFINED [...] malnutriti on Disease Active 03-04 00:00: 00 [facility] Allergies, Adverse Reactions, Alerts Allergy Name Allergy Type Status Severity Reaction(s) Onset Date Inactive Date Treating Clinician Comments Source PENICILL IN DRUG INGREDI Active Unknown-Cmnt 08-18 00:00: 00 [facility] Penicill in Propensi ty to adverse reaction s Active Unknown - See comments 08-18 00:00: 00 [facility] Penicill ins DA Active MO 09-13 00:00: 00 [facility] Penicill ins DA Active MO ITCHING 09-13 00:00: 00 [facility] codeine DA Active SV 12-10 00:00: 00 [facility] codeine DA Active SV ITCH 12-10 00:00: 00 [facility] Codeine Propensi ty to adverse reaction s Active Nausea and/or Vomiting 10-03 00:00: 00 [facility] CODEINE DRUG INGREDI Active N/V 10-03 00:00: 00 [facility] Social History Social Habit Start Date Stop Date Quantity Comments Source History of tobacco use Cigarette Smoker [facility] Sexual orientation U [facility]iversity [facility] Alcoholic beverage intake 2024-07-27 00:00:00 2024-07-27 00:00:00 Current drinker of alcohol (finding) [facility] History of Social function 2023-11-24 00:00:00 2023-11-24 00:00:00 [facility] Cigarettes smoked current (pack per day) - Reported 2022-07-28 00:00:00 2022-07-28 00:00:00 [facility] Cigarette pack-years 2022-07-28 00:00:00 2022-07-28 00:00:00 [facility] Alcohol intake 2022-07-28 00:00:00 2022-07-28 00:00:00 Current drinker of alcohol (finding) [facility] Alcohol Comment 2022-07-28 00:00:00 2022-07-28 00:00:00 1 pint/day [facility] Exposure to SARS-CoV-2 (event) 2022-07-09 00:00:00 2022-07-19 10:58:[address] [facility] Sex assigned at 1985 00:00:00 1985 00:00:00 [facility] Smoking Status Start Date Stop Date Source Smokes tobacco daily 2022-07-28 00:00:00 [facility] Tobacco smoking consumption unknown [facility] Medications Ordered Medication Name Filled Medication Name Start Date Stop Date Current Medication? Ordering Clinician Indication Dosage Frequency Signature (SIG) Comments Components Source tamsulosin (FLOMAX) capsule 0.4 mg 11-24 14:00: 00 Yes .4mg 0.4 mg, Oral, DAILY, First dose on Paula 11/25/23 at 0900, Until Discontinu ed, Routine [facility] ketorolac (TORADOL) injection 15 mg 11-24 00:30: 00 11-23 23:47 :00 No 15mg 15 mg, Slow IV Push, ONCE, 1 dose, On 11/24/23 at 1930, Routine [facility] iopamidol (ISOVUE 370-500 mL) injection 80 mL 11-23 23:15: 00 11-23 23:15 :00 No [id number] 80mL 80 mL, Intravenou s, ONCE, 1 dose, On Wed11/24/23 at 1815, Routine [facility] NaCl 0.9% (NS) bolus infusion 1,000 mL 11-23 22:15: 00 11-24 00:26 :00 No 1000mL at 999 mL/hr, 1,000 mL, IV Infusion, ONCE, 1 dose, On Wed11/24/23 at 1715, JAI [facility] ciprofloxac in in 5 % dextrose (CIPRO) piggyback 400 mg 11-23 22:15: 00 11-23 22:59 :00 No 400mg 400 mg, IV Piggyback, ONCE, 1 dose, On Wed11/24/23 at 1715, Administer over 60 Minutes, 200 mL, Reason for Anti-Infec tive: Documented Infection, Documented Infection Site: Urine, Duration of Therapy: Once (ED) [facility] ketorolac 10 mg tablet 11-23 00:00: 00 Yes [id number] 10mg Take 1 tablet by mouth every 6 (six) hours as needed for Pain (scale 4-6) or Pain (scale 7-10). [facility] tamsulosin 0.4 mg 24 hr capsule 11-23 00:00: 00 Yes [id number] .4mg Take 1 capsule by mouth at bedtime. [facility] ciprofloxac in HCl 250 mg tablet 11-23 00:00: 00 Yes [id number] 250mg Take 1 tablet by mouth in the morning and 1 tablet in the evening. [facility] iopamidol (ISOVUE 370-500 mL) injection 100 mL 10-14 12:45: 00 10-14 12:45 :00 No [id number] 100mL 100 mL, Intravenou s, ONCE, 1 dose, On Wed10/15/23 at 0745, Routine [facility] acetaminoph en (TYLENOL) tablet 1,000 mg 10-14 12:45: 00 10-14 11:37 :00 No 1000mg 1,000 mg, Oral, ONCE, 1 dose, On Wed10/15/23 at 0745, Routine [facility] levoFLOXaci n (LEVAQUIN) tablet 500 mg 10-14 11:45: 00 10-14 11:37 :00 No 500mg 500 mg, Oral, ONCE, 1 dose, On Wed10/15/23 at 0645, JAI
Re ason for Anti-Infec tive: Documented Infection< br>Documen dione Infection Site: Urine
D uration of Therapy: Other (see Comments) [facility] levoFLOXaci n 500 mg tablet 10-14 00:00: 00 11-23 00:00 :00 No [id number] 500mg Take 1 tablet by mouth every 24 (twenty-fo ur) hours. [facility] acetaminoph en (TYLENOL) tablet 650 mg 07-19 18:15: 00 07-19 19:05 :00 No 650mg 650 mg, Oral, ONCE, 1 dose, On 07/19/22 at 1215, [facility] No known medications 07-19 10:58: 45 No No known medication s [facility] acetaminoph en (TYLENOL) tablet 650 mg 07-19 04:30: 00 07-19 04:20 :00 No 650mg 650 mg, Oral, ONCE, 1 dose, On 07/18/22 at 2230, [facility] No known medications 07-18 22:17: 15 No No known medication s [facility] ibuprofen (IBU) tablet 600 mg 03-30 04:00: 00 03-30 03:59 :00 No 600mg 600 mg, Oral, ONCE, 1 dose, On 03/29/22 at 2300, [facility] No known medications 03-29 22:48: 44 No No known medication s [facility] KCL (KLOR-CON M20) tablet 20 mEq [...] mg by mouth 2 (two) times daily. [facility] Hydrocodone -Acetaminop hen (VICODIN ES) 7.5-300 mg tablet 10-03 18:45: 32 10-03 00:00 :00 No Take by mouth as needed. [facility] HYDROcodone -acetaminop hen (NORCO 5) 5-325 mg tablet 1 tablet 08-19 09:15: 00 08-19 08:06 :00 No 1{tbl} 1 tablet, Oral, ONCE, 1 dose, On Wed08/19/21 at 0315, [facility] iohexol (OMNIPAQUE 350 BULK-500 mL) injection 100 mL 08-19 07:00: 00 08-19 05:44 :00 No [id number] 100mL 100 mL, Intravenou s, ONCE, 1 dose, On Wed08/19/21 at 0100, Routine [facility] FENTanyl PF (SUBLIMAZE (PF)) injection 50 mcg 08-19 05:45: 00 08-19 05:04 :00 No 50ug 50 mcg, Slow IV Push, ONCE, 1 dose, On Wed08/18/21 at 2345, STAT [facility] Vancomycin 750 mg in NaCl 0.9% [...] Tissue
Duration of Therapy: Other (see Comments) [facility] HYDROcodone -acetaminop hen (NORCO 5) 5-325 mg tablet 1 tablet 08-19 05:00: 00 08-19 04:06 :00 No 1{tbl} 1 tablet, Oral, ONCE, 1 dose, On Wed08/18/21 at 2300, JAI [facility] doxycycline hyclate 100 mg capsule 08-19 00:00: 00 10-03 00:00 :00 No [id number] 100mg Take 1 capsule by mouth 2 (two) times daily. [facility] ibuprofen 600 mg tablet 08-19 00:00: 00 10-03 00:00 :00 No [id number] 600mg Take 1 tablet by mouth every 6 (six) hours as needed for Pain (scale 4-6). [facility] mupirocin 2 % ointment 08-19 00:00: 00 10-03 00:00 :00 No [id number] Apply to area(s) 3 (three) times daily. [facility] clindamycin 150 mg capsule 08-19 00:00: 00 08-27 05:59 :00 No [id number] 450mg Take 3 capsules by mouth 4 (four) times daily for 7 days. [facility] sulfamethox azole-trime thoprim 800-160 mg per tablet 11-08 00:00: 00 10-03 00:00 :00 No [id number] 1{tbl} Take 1 tablet by mouth every 12 (twelve) hours. [facility] mupirocin (BACTROBAN) 2 % ointment 11-08 00:00: 00 10-03 00:00 :00 No [id number] Apply to area(s) 3 (three) times daily. [facility] ibuprofen 600 mg tablet 11-08 00:00: 10-03 00:00 :00 No [id number] 600mg Take 1 tablet by mouth every 6 (six) hours as needed for Pain (scale 4-6). [facility] metoprolol tartrate 50 mg tablet 01-28 04:26: 59 Yes 50mg Take 50 mg by mouth 2 (two) times daily. [facility] Hydrocodone -Acetaminop hen (VICODIN ES) 7.5-300 mg tablet 01-28 04:26: 59 Yes Take by mouth as needed. [facility] metoprolol tartrate 50 mg tablet 01-27 23:26: 59 Yes 50mg Take 50 mg by mouth 2 (two) times daily. [facility] Hydrocodone -Acetaminop hen (VICODIN ES) 7.5-300 mg tablet 01-27 23:26: 59 Yes Take by mouth as needed. [facility] Immunizations Ordered Immunization Name Filled Immunization Name Date Status Comments Source TD, NOS 2023-11-24 16:05:[address] [facility] TD, NOS 2023-10-15 04:47:[address] [facility] Td 2022-03-29 00:00:[address] [facility] TD, NOS 2022-03-29 00:00:[address] [facility] TD, NOS 2022-03-29 00:00:[address] [facility] TD, NOS 2022-03-29 00:00:[address] [facility] TD, NOS 2022-03-29 00:00:[address] [facility] Td 2019-05-12 00:00:[address] [facility] Td 2019-05-12 00:00:[address] [facility] TD, NOS 2019-05-12 00:00:[address] [facility] TD, NOS 2019-05-12 00:00:[address] [facility] Td 2019-05-12 00:00:[address] [facility] TD, NOS 2019-05-12 00:00:[address] [facility] TD, NOS 2019-05-12 00:00:[address] [facility] Td 2019-05-12 00:00:[address] [facility] Td 2019-05-12 00:00:[address] [facility] Td 2019-05-12 00:00:[address] [facility] Vital Signs Vital Name Observation Time Observation Value Comments S ource Systolic blood pressure 2023-11-25 00:25:00 137 mm[Hg] [facility] Diastolic blood pressure 2023-11-25 00:25:00 93 mm[Hg] [facility] Heart rate 2023-11-25 00:25:00 81 /min [facility] Body temperature 2023-11-25 00:25:[address] [facility] Respiratory rate 2023-11-25 00:25:00 18 /min [facility] Oxygen saturation in Arterial blood by Pulse oximetry 2023-11-25 00:25:00 100 /min [facility] Body height 2023-11-24 21:16:00 167.6 cm [facility] Body weight 2023-11-24 21:16:00 45.36 kg [facility] BMI 2023-11-24 21:16:00 16.14 kg/m2 [facility] Systolic blood pressure 2023-10-15 09:20:00 143 mm[Hg] [facility] Diastolic blood pressure 2023-10-15 09:20:00 77 mm[Hg] [facility] Heart rate 2023-10-15 09:20:00 87 /min [facility] Body temperature 2023-10-15 09:20:[address] [facility] Respiratory rate 2023-10-15 09:20:00 18 /min [facility] Body height 2023-10-15 09:20:00 167.6 cm [facility] Body weight 2023-10-15 09:20:00 48.988 kg [facility] BMI 2023-10-15 09:20:00 17.43 kg/m2 [facility] Oxygen saturation in Arterial blood by Pulse oximetry 2023-10-15 09:20:00 98 /min [facility] Systolic blood pressure 2022-07-19 16:59:00 127 mm[Hg] [facility] Diastolic blood pressure 2022-07-19 16:59:00 84 mm[Hg] [facility] Heart rate 2022-07-19 16:59:00 80 /min [facility] Body temperature 2022-07-19 16:59:[address] [facility] Respiratory rate 2022-07-19 16:59:00 14 /min [facility] Body height 2022-07-19 16:59:00 167.6 cm [facility] Body weight 2022-07-19 16:59:00 49.896 kg [facility] BMI 2022-07-19 16:59:00 17.75 kg/m2 [facility] Oxygen saturation in Arterial blood by Pulse oximetry 2022-07-19 16:59:00 100 /min [facility] Systolic blood pressure 2022-07-19 04:16:00 130 mm[Hg] [facility] Diastolic blood pressure 2022-07-19 04:16:00 82 mm[Hg] [facility] Heart rate 2022-07-19 04:16:00 87 /min [facility] Body temperature 2022-07-19 04:16:[address] [facility] Respiratory rate 2022-07-19 04:16:00 19 /min [facility] Body height 2022-07-19 04:16:00 167.6 cm [facility] Body weight 2022-07-19 04:16:00 48.988 kg [facility] BMI 2022-07-19 04:16:00 17.43 kg/m2 [facility] Oxygen saturation in Arterial blood by Pulse oximetry 2022-07-19 04:16:00 99 /min [facility] Systolic blood pressure 2022-03-30 03:54:00 139 mm[Hg] [facility] Diastolic blood pressure 2022-03-30 03:54:00 78 mm[Hg] [facility] Heart rate 2022-03-30 03:54:00 85 /min [facility] Body temperature 2022-03-30 03:54:[address] [facility] Respiratory rate 2022-03-30 03:54:00 20 /min [facility] Body height 2022-03-30 03:54:00 167.6 cm [facility] Body weight 2022-03-30 03:54:00 55.293 kg [facility] BMI 2022-03-30 03:54:00 19.68 kg/m2 [facility] Oxygen saturation in Arterial blood by Pulse oximetry 2022-03-30 03:54:00 98 /min [facility] Heart rate 2021-10-04 00:30:00 83 /min [facility] Respiratory rate 2021-10-04 00:30:00 14 /min [facility] Oxygen saturation in Arterial blood by Pulse oximetry 2021-10-04 00:30:00 99 /min [facility] Systolic blood pressure 2021-10-04 00:00:00 131 mm[Hg] [facility] Diastolic blood pressure 2021-10-04 00:00:00 91 mm[Hg] [facility] Body temperature 2021-10-03 23:41:[address] [facility] Body weight 2021-10-03 23:41:00 56.7 kg [facility] BMI 2021-10-03 23:41:00 19.58 kg/m2 [facility] Heart rate 2021-08-19 08:33:00 92 /min [facility] Respiratory rate 2021-08-19 08:33:00 18 /min [facility] Oxygen saturation in Arterial blood by Pulse oximetry 2021-08-19 08:33:00 97 /min [facility] Systolic blood pressure 2021-08-19 05:30:00 123 mm[Hg] [facility] Diastolic blood pressure 2021-08-19 05:30:00 83 mm[Hg] [facility] Body weight 2021-08-19 03:33:00 47.628 kg [facility] BMI 2021-08-19 03:33:00 16.45 kg/m2 [facility] Body temperature 2021-08-19 03:33:[address] [facility] Body height 2021-08-19 03:33:00 170.2 cm [facility] Systolic blood pressure 2021-08-03 08:57:46 151 mm[Hg] [facility] Diastolic blood pressure 2021-08-03 08:57:46 114 mm[Hg] [facility] Heart rate 2021-08-03 08:57:46 98 /min [facility] Body temperature 2021-08-03 08:57:[address] [facility] Respiratory rate 2021-08-03 08:57:46 18 /min [facility] Oxygen saturation in Arterial blood by Pulse oximetry 2021-08-03 08:57:46 95 /min [facility] Body height 2021-08-03 08:56:00 167.6 cm [facility] Body weight 2021-08-03 08:56:00 58.968 kg [facility] BMI 2021-08-03 08:56:00 20.98 kg/m2 [facility] Systolic blood pressure 2021-02-22 08:38:00 143 mm[Hg] [facility] Diastolic blood pressure 2021-02-22 08:38:00 87 mm[Hg] [facility] Heart rate 2021-02-22 08:38:00 52 /min [facility] Respiratory rate 2021-02-22 08:38:00 14 /min [facility] Body height 2021-02-22 08:38:00 167.6 cm [facility] Body weight 2021-02-22 08:38:00 58.968 kg [facility] BMI 2021-02-22 08:38:00 20.98 kg/m2 [facility] Oxygen saturation in Arterial blood by Pulse oximetry 2021-02-22 08:38:00 94 /min [facility] Procedures Procedure Date / Time Performed Performing Clinician Source POCT TEST 2023-11-24 21:51:[address] [facility] LIPASE 2023-11-24 21:50:00 Oriana Almanza [facility] COMP. METABOLIC PANEL ([id number]) 2023-11-24 21:50:[address] [facility] ETHANOL 2023-11-24 21:50:00 Oriana Almanza [facility] CBC WITH DIFF 2023-11-24 21:50:00 Oriana Almanza [facility] URINALYSIS 2023-11-24 21:50:00 Oriana Almanza [facility] URINE DRUG (IMMUNOASSAY) - COMPREHENSIVE DRUG SCREEN W/O REFLEX 2023-11-24 21:50:[address] [facility] LIPASE 2023-10-15 10:31:00 Juan Martinez [facility] COMP. METABOLIC PANEL ([id number]) 2023-10-15 10:31:[address] [facility] CBC WITH DIFF 2023-10-15 10:31:00 Juan Martinez [facility] URINALYSIS 2023-10-15 09:50:00 Juan Martinez [facility] EMERGENCY DEPARTMENT DOCUMENTS 2022-09-07 06:01:00 Doctor Unassigned, [place] [facility] XR ABDOMEN ACUTE SERIES 2022-07-19 18:38:[address] [facility] COVID-19 (ID NOW RAPID TESTING) 2022-07-19 18:24:[address] [facility] LIPASE 2021-10-03 23:53:00 José Miguel [facility] TROPONIN I 2021-10-03 23:53:00 José Miguel [facility] COMP. METABOLIC PANEL ([id number]) 2021-10-03 23:53:[address] [facility] ETHANOL 2021-10-03 23:53:00 José Miguel [facility] CBC WITH DIFF 2021-10-03 23:53:00 Cassie Fisher [facility] N-TERMINAL PRO-BNP 2021-10-03 23:53:[address] [facility] INCISION AND DRAINAGE 2021-08-19 08:28:[address] [facility] LACTIC ACID WHOLE BLOOD 2021-08-19 07:22:[address] [facility] CT SOFT TISSUE NECK W CONTRAST 2021-08-19 05:46:[address] [facility] POCT TEST 2021-08-19 05:39:[address] [facility] URINALYSIS 2021-08-19 05:23:00 Cayden Lao [facility] URINE DRUG (IMMUNOASSAY) - COMPREHENSIVE DRUG SCREEN W/O REFLEX 2021-08-19 05:23:[address] [facility] XR HAND 3+ VW LEFT 2021-08-19 04:53:[address] [facility] BLOOD CULTURE SCREEN 2021-08-19 04:21:[address] [facility] COMP. METABOLIC PANEL ([id number]) 2021-08-19 04:20:[address] [facility] CBC WITH DIFF 2021-08-19 04:20:00 Cayden Lao [facility] LACTIC ACID WHOLE BLOOD 2021-08-19 04:19:00 Lao, Me helen Betina [facility] Encounters Start Date/Time End Date/Time Encounter Type Admission Type Attending Clinicians Care Facility Care Department Encounter ID Source 2019-09-14 10:13:00 Inpatient HCAPM HEYDI [id number] [facility] 2024-07-27 05:47:27 2024-07-27 23:59:00 Hospital Encounter Toro Walden [facility] [id number] 350.1.13.10 [id number] [id number] [facility] 2023-11-24 16:05:00 2023-11-24 19:29:00 Emergency Rjbryan Oriana G [facility] [id number] 350.1.13.10 4.2.7.2.686 [id number] [facility] 2023-10-15 04:47:00 2023-10-15 07:34:00 Emergency MagojarettandressaJuan [facility] [id number] 350.1.13.10 [id number] [id number] [facility] 2022-09-07 00:00:00 2022-09-07 00:00:00 Orders Only Doctor Unassigned, [place] [facility] [id number] 350.1.13.10 4.2.7.2.686 [id number] [facility] 2022-07-19 10:56:00 2022-07-19 13:41:00 Emergency X BIANCA PACHECO [facility] ERT [id number] [facility] 2022-07-19 10:56:00 2022-07-19 13:41:00 Emergency Bianca Pahceco [facility] [id number] 350.1.13.10 4.2.7.2.686 [id number] [facility] 2022-07-18 22:16:00 2022-07-18 22:52:00 Emergency X SHILOH WRIGHT [facility] ERT [id number] [facility] 2022-07-18 22:16:00 2022-07-18 22:52:00 Emergency Shiloh Wright [facility] [id number] 350.1.13.10 4.2.7.2.686 [id number] [facility] 2022-03-29 22:56:00 2022-03-29 23:12:00 Emergency X SHILOH WRIGHT [facility] ERT [id number] [facility] 2022-03-29 22:56:00 2022-03-29 23:12:00 Emergency Shiloh Wright [facility] [id number] 350.1.13.10 4.2.7.2.686 [id number] [facility] 2021-10-03 18:40:00 2021-10-03 19:56:00 Emergency X CASSIE FISHER [facility] ERT [id number] [facility] 2021-10-03 18:40:00 2021-10-03 19:56:00 Emergency Cassie Fisher [facility] [id number] 350.1.13.10 4.2.7.2.686 [id number] [facility] 2021-08-18 21:38:00 2021-08-19 02:43:00 Emergency X LAOCAYDEN [facility] ERT [id number] [facility] 2021-08-18 21:38:00 2021-08-19 02:43:00 Emergency Cayden Lao [facility] [id number] [id number] 4.2.7.2.686 [id number] [facility] 2021-08-03 03:33:00 2021-08-03 03:34:00 Emergency ELIZABETH PALM [facility] ERT [id number] [facility] 2021-08-03 03:33:00 2021-08-03 03:34:00 Emergency Elizabeth Uribe [facility] [id number] 350.1.13.10 4.2.7.2.686 [id number] [facility] 2021-07-30 14:36:00 2021-07-30 17:19:00 Emergency ELIZABETH PALM [facility] ERT [id number] [facility] 2021-07-30 14:36:00 2021-07-30 17:19:00 Emergency Elizabeth Uribe [facility] [id number] 350.1.13.10 4.2.7.2.686 [id number] [facility] 2021-02-22 03:41:00 2021-02-22 04:34:00 Emergency Juan Martinez [facility] [id number] 350.1.13.10 4.2.7.2.686 [id number] [facility] 2021-02-22 03:41:00 2021-02-22 03:41:00 Emergency X [facility] ERT [id number] [facility] 2019-09-15 00:24:00 2019-09-15 00:24:00 Outpatient Fredis Foy [facility] OUTD [id number] [facility] 2019-05-12 23:26:57 2019-05-12 23:54:00 Emergency X SHILOH WRIGHT [facility] ERT [id number] [facility] Results Test Description Test Time Test Comments Results Result Co mments Source [facility] 22:18:04* Test Item Value Reference Range Interpretation Comme nts ALCOHOL (test code = 4503387632) 209 mg/dL CECIL (test code = CECIL) <10 Izsjmaop29-160 Toxic>100 Depression of DIORAMIST>400 Fatalities Reported [facility]. METABOLIC PANEL (01618)2023-11-24 22:17:23* Test Item Value Reference Range Interpretation Comme nts NA (test code = 0271705140) 140 mmol/L 135-145 K (test code = 3809253397) 3.3 mmol/L 3.5-5.0 L CL (test code = 5487920784) 107 mmol/L 98-108 CO2 TOTAL (test code = 6966849402) 21 mmol/L 23-31 L AGAP (test code = 0883108503) 12 2-16 BUN (test code = 2004089329) 16 mg/dL 7-23 GLUCOSE (test code = 5126113684) 88 mg/dL 70-110 CREATININE (test code = 2160-0) 0.83 mg/dL 0.50-1.04 TOTAL BILI (test code = 4279781280) 0.9 mg/dL 0.1-1.1 CALCIUM (test code = 4614745702) 8.4 mg/dL 8.6-10.6 L T PROTEIN (test code = 7815842238) 7.6 g/dL 6.3-8.2 ALBUMIN (test code = 0182874064) 4.0 g/dL 3.5-5.0 ALK PHOS (test code = 8520569413) 112 U/L 34-122 ALTv (test code = 1742-6) 16 U/L 5-35 AST(SGOT) (test code = 7358012840) 41 U/L 13-40 H eGFR (test code = 77186-8) 91.5 mL/min/1.73m2 CKD-EPI eGFR (2020). Assuming creatinine has been stable day-to-day for at least three months, the eGFR indicates Category G1 (>= 90 mL/min/1.73 m2) Lab Interpretation (test code = 52243-6) Abnormal [facility]24-[facility] 22:17:08* Test Item Value Reference Range Interpretation Comme nts LIPASE (test code = 4300814803) 96 U/L 0-220 Lab Interpretation (test cod e = 62480-6) Normal [facility] [id number] 21:51:00* Test Item Value Reference Range Interpretation Comme nts POCT PREG (test code = 1605) Negative On board controls acceptable with C Line (test code = 3574) Yes POCT PREG LOT # (test code = 3575) [id number] POCT PREG TEST DATE ( test code = 3576) 2024-10-17 Lab Interpretation (test cod e = 78651-5) Normal [facility] HospitalCb with Nbjg8080-11-23 11:25:41* Test Item Value Reference Range Interpretation [...] g/dL 31.6-35.1 L RDW-SD (test code = 53919-4) 39.2 fL 39.0-49.9 RDW-CV (test code = 788-0) 16.7 % 12.0-15.5 H PLT (test code = 777-3) 318 166-358 MPV (test code = 66421-4) 9.0 fL 9.5-12.9 L NRBC/100 WBC (test code = 7358947333) 0.0 0.0-10.0 NRBC x10^3 (test code = 6180230519) See_Comment [Automated messa ge] The system which generated this result transmitted reference range: 10*3/?L. The reference range was not used to interpret this result as normal/abnormal. SEG % (test code = 41545-0) 72 % 33-76 LYMPH % (test code = 00060-0) 16 % 14-54 MONO % (test code = 38310-1) 12 % 0-4 H ANC (test code = 753-4) 3.48 10*3/uL 1.88-7.09 Lab Interpretation (test code = 98836-3) Abnormal [facility] Metabolic Panel (05649)2023-10-15 11:07:15* Test Item Value Reference Range Interpretation Comme nts NA (test code = 1284691325) 137 mmol/L 135-145 K (test code = 4465007029) 3.3 mmol/L 3.5-5.0 L CL (test code = 2755178267) 104 mmol/L 98-108 CO2 TOTAL (test code = 7407337028) 22 mmol/L 23-31 L AGAP (test code = 5708640726) 11 2-16 BUN (test code = 8368701863) 18 mg/dL 7-23 GLUCOSE (test code = 3877716167) 99 mg/dL 70-110 CREATININE (test code = 2160-0) 0.78 mg/dL 0.50-1.04 TOTAL BILI (test code = 1603575642) 0.8 mg/dL 0.1-1.1 CALCIUM (test code = 1335004986) 9.1 mg/dL 8.6-10.6 T PROTEIN (test code = 0665902479) 8.3 g/dL 6.3-8.2 H ALBUMIN (test code = 7620090583) 4.3 g/dL 3.5-5.0 ALK PHOS (test code = 6176164905) 95 U/L 34-122 ALTv (test code = 1742-6) 17 U/L 5-35 AST(SGOT) (test code = 1391325522) 38 U/L 13-40 eGFR (test code = 04457-3) 98.6 mL/min/1.73m2 CKD-EPI eGFR (2020). Assuming creatinine has been stable day-to-day for at least three months, the eGFR indicates Category G1 (>= 90 mL/min/1.73 m2) Lab Interpretation (test code = 67308-9) Abnormal [facility] HospitalLipase2024-04-05 11:06:54* Test Item Value Reference Range Interpretation Comme nts LIPASE (test code = 4127687493) 124 U/L 0-220 Lab Interpretation (test cod e = 59782-4) Normal [facility] HospitalTROPONIN [id number] 00:32:37* Test Item Value Reference Range Interpretation Comments TROPONIN I (test code = 1655362437) 0.002 ng/mL See_Comment [Automated message] The system [...] of biotin. Lab Interpretation (test code = 79098-0) Normal [facility] HospitalN-TERMINAL [id number]-QJV8828-03-26 00:29:16* Test Item Value Reference Range Interpretation Comme nts NT-proBNP (test code = 7448168683) 223 pg/mL See_Comment H [Automated message] The system which generated this result transmitted reference range: <=125. The reference range was not used to interpret this result as normal/abnormal. CECIL (test code = CECIL) Biotin has been reported to cause a negative bias, interpret results relative to patient's use of biotin. Lab Interpretation (test code = 59384-1) Abnormal [facility] HospitalETHANOL2022-03-26 00:21:13* Test Item Value Reference Range Interpretation Comme nts ALCOHOL (test code = 0931227650) 72 mg/dL CECIL (test code = CECIL) <10 Ekudsmwk02-917 Toxic>100 Depression of DIORAMIST>[address] [facility] HospitalCOMP. METABOLIC PANEL (95871)2021-10-04 00:20:37* Test Item Value Reference Range Interpretation Comme nts NA (test code = 7050312284) 137 mmol/L 135-145 K (test code = 0127862823) 3.3 mmol/L 3.5-5.0 L CL (test code = 0967999751) 105 mmol/L 98-108 CO2 TOTAL (test code = 4755195377) 21 mmol/L 23-31 L AGAP (test code = 1523651005) 2-16 BUN (test code = 5522827289) 14 mg/dL 7-23 GLUCOSE (test code = 9496197597) 89 mg/dL 70-110 CREATININE (test code = 6373054217) 0.77 mg/dL 0.50-1.04 TOTAL BILI (test code = 5616894592) 0.7 mg/dL 0.1-1.1 CALCIUM (test code = 2203759592) 8.6 mg/dL 8.6-10.6 T PROTEIN (test code = 8840898948) 7.4 g/dL 6.3-8.2 ALBUMIN (test code = 3748287852) 4.4 g/dL 3.5-5.0 ALK PHOS (test code = 9502426773) 72 U/L 34-122 ALTv (test code = 1742-6) 16 U/L 5-35 AST(SGOT) (test code = 9268842862) 32 U/L 13-40 eGFR (test code = 0856994166) mL/min/1.73m2 CECIL (test code = CECIL) Association [...] imaging tests). Lab Interpretation (test code = 96181-3) Abnormal [facility]ASE2022-03-26 00:20:17* Test Item Value Reference Range Interpretation Comme nts LIPASE (test code = 7802412427) 150 U/L 0-220 Lab Interpretation (test cod e = 67595-7) Normal [facility] HospitalCBC WITH [id number] 00:13:12* Test Item Value Reference Range Interpretation Comme nts WBC (test code = 6690-2) See_Comment [Automated messa Creww] The system which generated this result transmitted [...] g/dL 31.6-35.1 L RDW-SD (test code = 19290-0) 44.0 fL 39.0-49.9 RDW-CV (test code = 788-0) 15.0 % 12.0-15.5 PLT (test code = 777-3) See_Comment H [Automated messa ge] The system which generated this result transmitted reference range: 166 - 358 10*3/?L. The reference range was not used to interpret this result as normal/abnormal. MPV (test code = 69868-9) 9.2 fL 9.5-12.9 L NRBC/100 WBC (test code = 7855929591) See_Comment [Automated Eventap ssage] The system which generated this result transmitted reference range: 0.0 - 10.0 /100 WBCs. The reference range was not used to interpret this result as normal/abnormal. NRBC x10^3 (test code = 4087253621) <0.01 See_Comment [Automated messa ge] The system which generated this result transmitted reference range: 10*3/?L. The reference range was not used to interpret this result as normal/abnormal. GRAN MAT (NEUT) % (test code = 770-8) 70.6 % IMM GRAN % (test code = 4082443847) 0.40 % LYMPH % (test code = 736-9) 19.9 % MONO % (test code = 5905-5) 7.8 % EOS % (test code = 713-8) 0.7 % BASO % (test code = 706-2) 0.6 % GRAN MAT x10^3(ANC) (test code = 8449547768) 3.81 10*3/uL 1.88-7.09 IMM GRAN x10^3 (test code = 5230262185) <0.03 0.00-0.06 LYMPH x10^3 (test code = 731-0) 1.07 10*3/uL 1.32-3.29 L MONO x10^3 (test code = 742-7) 0.42 10*3/uL 0.33-0.92 EOS x10^3 (test code = 711-2) 0.04 10*3/uL 0.03-0.39 BASO x10^3 (test code = 704-7) 0.03 10*3/uL 0.01-0.07 Lab Interpretation (test code = 25577-3) Abnormal [facility] HospitalPOOH [id number] 05:39:00* Test Item Value Reference Range Interpretation Comme nts POCT PREG (test code = 1605) negative On board controls acceptable with C Line (test code = 3574) negative POCT PREG LOT # (test code = 3575) [id number] POCT PREG TEST DATE ( test code = 3576) 09-08-2022 Lab Interpretation (test cod e = 95462-8) Normal [facility]. METABOLIC PANEL (04331)2021-08-19 05:01:43* Test Item Value Reference Range Interpretation Comme nts NA (test code = 2917470117) 138 mmol/L 135-145 K (test code = 0223878939) 3.4 mmol/L 3.5-5.0 L CL (test code = 6794008149) 105 mmol/L 98-108 CO2 TOTAL (test code = 5572923204) 26 mmol/L 23-31 AGAP (test code = 2503821586) 2-16 BUN (test code = 8110433007) 11 mg/dL 7-23 GLUCOSE (test code = 1003675924) 97 mg/dL 70-110 CREATININE (test code = 2502795053) 0.72 mg/dL 0.50-1.04 TOTAL BILI (test code = 8978219295) 0.2 mg/dL 0.1-1.1 CALCIUM (test code = 8273118810) 7.5 mg/dL 8.6-10.6 L T PROTEIN (test code = 3837908340) 6.0 g/dL 6.3-8.2 L ALBUMIN (test code = 4538807988) 3.0 g/dL 3.5-5.0 L ALK PHOS (test code = 9910722861) 104 U/L 34-122 ALTv (test code = 1742-6) 11 U/L 5-35 AST(SGOT) (test code = 1523215865) 26 U/L 13-40 eGFR (test code = 9633709262) mL/min/1.73m2 CECIL (test code = CECIL) Association [...] imaging tests). Lab Interpretation (test code = 58631-2) Abnormal [facility] WITH [id number] 04:47:59* Test Item Value Reference Range Interpretation Comme nts WBC (test code = 6690-2) See_Comment [anywayanyday] The system which generated this result transmitted reference range: 4.30 - 11.10 10*3/?L. The reference range was not used to interpret this result as normal/abnormal. RBC (test code = 789-8) See_Comment L [anywayanyday] The system which generated this result transmitted [...] g/dL 31.6-35.1 L RDW-SD (test code = 10056-2) 45.7 fL 39.0-49.9 RDW-CV (test code = 788-0) 14.6 % 12.0-15.5 PLT (test code = 777-3) See_Comment [Automated messa ge] The system which generated this result transmitted reference range: 166 - 358 10*3/?L. The reference range was not used to interpret this result as normal/abnormal. MPV (test code = 96397-8) 9.3 fL 9.5-12.9 L NRBC/100 WBC (test code = 1465073141) See_Comment [Automated Eventap ssage] The system which generated this result transmitted reference range: 0.0 - 10.0 /100 WBCs. The reference range was not used to interpret this result as normal/abnormal. NRBC x10^3 (test code = 0435627221) <0.01 See_Comment [Automated messa ge] The system which generated this result transmitted reference range: 10*3/?L. The reference range was not used to interpret this result as normal/abnormal. GRAN MAT (NEUT) % (test code = 770-8) 75.6 % IMM GRAN % (test code = 6169724243) 0.40 % LYMPH % (test code = 736-9) 12.8 % MONO % (test code = 5905-5) 10.3 % EOS % (test code = 713-8) 0.6 % BASO % (test code = 706-2) 0.3 % GRAN MAT x10^3(ANC) (test code = 7947407657) 5.09 10*3/uL 1.88-7.09 IMM GRAN x10^3 (test code = 0059334395) 0.03 10*3/uL 0.00-0.06 LYMPH x10^3 (test code = 731-0) 0.86 10*3/uL 1.32-3.29 L MONO x10^3 (test code = 742-7) 0.69 10*3/uL 0.33-0.92 EOS x10^3 (test code = 711-2) 0.04 10*3/uL 0.03-0.39 BASO x10^3 (test code = 704-7) <0.03 0.01-0.07 Lab Interpretation (test code = 35627-6) Abnormal [facility] HospitalTROPONIN I [id number] 13:02:00* Test Item Value Reference Range Interpretation Comme nts TROPONIN I RAPID (test code = TROPIRAP) 0.00 ng/mL 0.00-0.08 N - The use of ser ial sampling and testing protocol is a recommended practice- An elevated troponin level alone is often not sufficient for diagnosis of myocardial infarction. COMPREHENSIVE METABOLIC [id number] 11:17:00* Test Item Value Reference Range Interpretation [...] = ALKP) 69 Unit/L 45-117 N LACTIC [id number] 11:17:00* Test Item Value Reference Range Interpretation Comme nts LACTIC ACID (test code = LACT) 1.1 mmol/L 0.4-2.0 N CBC W/AUTO [id number] 11:11:00* Test Item Value Reference Range Interpretation [...] NO DIFF/SCN CRITERIA - XR CHEST 1 [id number] 10:49:00Name: BYRAN BAEZ [place] : 1985 Age/S: 33 / F [address] Unit #: [id number] Loc: [place] [address] Phys: Fredis Foy MD Acct: [id number] Dis Date: Status: REG ER P MARITZA #: [phone] Exam Date: 09/14/2019 1040 FAX #: Reason: Suspected Sepsis EXAMS: CPT: [id number] XR CHEST 1 V 31860 Fluoro Time: DAP (Gy m2): Air Kerma [...] PAGE 1 Signed Report Name: BRYAN BAEZ [place] :1985 Age/S: 33 / F [address] Unit #: [id number] Loc: [place] [address] Phys: Fredis Foy MD Acct: [id number] Dis Date: Status: REG ER PHONE #: [phone] Exam Date: 09/14/2019 1040 FAX #: Reason: Suspected Sepsis EXAMS: CPT: [id number] XR CHEST 1 V 43230 Fluoro Time: DAP (Gy m2): Air Kerma (mGy): (Continued) Technologist: Marsha Murphy RT(R) Trnscb Date/Time: 09/14/2019 (1049) NeelAM18 Orig Print D/T: S: 09/14/2019 (2251) PAGE 2 Signed Report Notes Date/Time Note [...] apparent distress with law enforcement escort- [employer] [facility] 2023-11-24 16:06:15 Patient arrived via [place] [employer]. PD officer states patient was arrested for PI, and then said her mouth was hurting. PD officer states she needs medical clearance to [facility] to [facility]. Patient states she was seen 3 weeks prior for abscesses in her mouth, prescribed antibiotics but was not able to pickle cutter prescription. Patient states she is also having abdominal pain, daily alcohol drinker. Patient also states her right 2nd digit is broken. Lucia Ashford RN [facility] 2023-10-15 07:33:10 Patient given discharge instructions on bladder infection, foreign body in vagina. Given prescription x 1 for levaquin. Pt advised to follow up with pcp. Pt left ER ambulatory with officer. No signs of distress. Krupa Broussard RN [facility] 2023-10-15 07:09:52 RN to RN patient care report given to Krupa POWELL Constance Cueva RN [facility] 2023-10-15 07:05:00 Officer came to nurses stations and had meth pipe that pt pulled from vagina. . [facility] [employer] 2023-10-15 04:14:51 Pt states that she is [...] urinate because she urinated a lot earlier Critical access hospital 2019-09-14 10:16:00 [facility] ([facility]) EMERGENCY PROVIDER REPORT REPORT#:[id number] REPORT STATUS: Signed DATE:09/14/19 TIME:1016 PATIENT: BRYAN BAEZ UNIT #: [id number] ROOM/BED: : 83 AGE: 33 SEX: F [...] (Auto) (20.5 - 51.1 %) 10.0 L [place] % (Auto) (1.7 - 9.3 %) 9.4 H Eos % (Auto) (0.0 - 6.0 %) 0.2 Baso % (Auto) (0.0 - 2.0 %) 0.6 Neut # (Auto) (1.8 - 7.6 K/mm3) 8.01 H Lymph # (Auto) (0.6 - 3.2 K/mm3) 1.0 [place] # (Auto) (0.3 - 1.1 K/mm3) 0.9 [...] Baca on 09/14/19 at 1250 at 1402 [facility] #: [id number] END OF REPORT HCAPM"
--- NOTE | 2025-04-21 20:10 | EDPHYS ---
Physician Documentation [facility] Name: Kim Starr Age: 39 yrs Sex: Female : 1985 Arrival Date: 04/21/2025 Time: 19:35 Bed 14 Private MD: MARJORIE Physician Linwood Boss HPI: 04/21 19:49 This 39 yrs old Female presents to ER via EMS with complaints of Abdominal roney Pain. 19:49 The patient presents with abdominal pain in the upper abdomen, in the lower abdomen. roney Onset: The symptoms/episode began/occurred today. The patient presents to the emergency department with nausea, vomiting. Onset: The symptoms/episode began/occurred 1 day(s) ago. Possible causes: unknown, etoh, hernia. The symptoms are aggravated by nothing. Associated signs and symptoms: The patient has no apparent associated signs or symptoms. Associated signs and symptoms: none. Modifying factors: The symptoms are alleviated by nothing, the symptoms are aggravated by drinking, emotional upset, food, pressure. SOFTWARE SUPPORT SPECIALIST: 19:51 unknown bm8 Historical: - Allergies: 19:39 Codeine; kt5 19:39 PENICILLINS; kt5 19:39 Suboxone; kt5 - Immunization history:: Adult Immunizations unknown. - Infectious Disease History:: Denies. - Family history:: not pertinent. - Social history:: Smoking status: Patient reports the use of cigarette tobacco products, smokes one pack cigarettes per day. Patient uses alcohol, Patient/guardian denies using street drugs. ROS: 19:49 Constitutional: Negative for fever, chills, and weight loss, Eyes: Negative for injury, roney pain, redness, and discharge, ENT: Negative for injury, pain, and discharge, Neck: Negative for injury, pain, and swelling, Cardiovascular: Negative for chest pain, palpitations, and edema, Respiratory: Negative for shortness of breath, cough, wheezing, and pleuritic chest pain, Back: Negative for injury and pain, : Negative for injury, bleeding, discharge, and swelling, MS/Extremity: Negative for injury and deformity, Skin: Negative for injury, rash, and discoloration, Neuro: Negative for headache, weakness, numbness, tingling, and seizure, Psych: Negative for depression, anxiety, suicide ideation, homicidal ideation, and hallucinations, Allergy/Immunology: Negative for hives, rash, and allergies, Endocrine: Negative for neck swelling, polydipsia, polyuria, polyphagia, and marked weight changes, Hematologic/Lymphatic: Negative for swollen nodes, abnormal bleeding, and unusual bruising, 19:49 Abdomen/GI: Positive for abdominal pain, nausea and vomiting, Exam: 19:49 Constitutional: This is a well developed, well nourished patient who is awake, alert, roney and in no acute distress. Head/Face: Normocephalic, atraumatic. Eyes: Pupils equal round and reactive to light, extra-ocular motions intact. Lids and lashes normal. Conjunctiva and sclera are non-icteric and not injected. Cornea within normal limits. Periorbital areas with no swelling, redness, or edema. ENT: Nares patent. No nasal discharge, no septal abnormalities noted. Tympanic membranes are normal and external auditory canals are clear. Oropharynx with no redness, swelling, or masses, exudates, or evidence of obstruction, uvula midline. Mucous membranes moist. Neck: Trachea midline, no thyromegaly or masses palpated, and no cervical lymphadenopathy. Supple, full range of motion without nuchal rigidity, or vertebral point tenderness. No Meningismus. Chest/axilla: Normal chest wall appearance and motion. Nontender with no deformity. No lesions are appreciated. Cardiovascular: Regular rate and rhythm with a normal S1 and S2. No gallops, murmurs, or rubs. Normal PMI, no JVD. No pulse deficits. Respiratory: Lungs have equal breath sounds bilaterally, clear to auscultation and percussion. No rales, rhonchi or wheezes noted. No increased work of breathing, no retractions or nasal flaring. Back: No spinal tenderness. No costovertebral tenderness. Full range of motion. Skin: Warm, dry with normal turgor. Normal color with no rashes, no lesions, and no evidence of cellulitis. MS/ Extremity: Pulses equal, no cyanosis. Neurovascular intact. Full, normal range of motion., bilateral aka Neuro: Awake and alert, GCS 15, oriented to person, place, time, and situation. Cranial nerves II-XII grossly intact. Motor strength 5/5 in all extremities. Sensory grossly intact. Cerebellar exam normal. Normal gait. Psych: Awake, alert, with orientation to person, place and time. Behavior, mood, and affect are within normal limits. 19:49 Abdomen/GI: Inspection: abdomen appears normal, Bowel sounds: normal, Palpation: abdomen is soft and non-tender, in all quadrants, 19:49 Musculoskeletal/extremity: DVT Exam: No signs of deep vein thrombosis. no pain, no swelling, no tenderness, negative Homans' sign noted on exam, no appreciated bluish discoloration, no erythema, no increased warmth, Vital Signs: 19:36 BP 146 / 78; Pulse 77; Resp 16; Temp 98.3; Pulse Ox 98% ; Weight 43.54 kg; Height 5 ft. kt5 8 in. ; Pain 4/10; 19:43 BP 155 / 98; Pulse 84; Resp 17; Temp 97.5; Pulse Ox 99% ; Weight 55.34 kg; Height 5 ft. bm8 5 in. ; Pain 0/10; 19:43 Body Mass Index 20.30 (55.34 kg, 165.1 cm) bm8 19:36 Pain Scale: Adult kt5 19:43 Pain Scale: Adult bm8 Margarito Coma Score: 19:43 Eye Response: spontaneous(4). Motor Response: obeys commands(6). Verbal Response: bm8 oriented(5). Total: 15. MDM: 19:36 Medical Screening Exam initiated roney 20:06 Differential diagnosis: pancreatitis, diverticulitis, viral gastroenteritis, roney gastroenteritis, appendicitis, bowel obstruction, cholecystitis, Cholelithiasis, diverticulitis, Hepatitis, non-specific abd pain, pancreatitis, Peptic Ulcer Disease, Ureterolithiasis, urinary tract infection. Data reviewed: vital signs, nurses notes. Consideration of Admission/Observation Escalation of care including admission/observation considered. I considered the following discharge prescriptions or medication management in the emergency department Medications were administered in the Emergency Department. See MAR. Test considered but Not performed: Labs: pt refused all test. Historians other than the Patient: EMS: ems well informed. Care significantly affected by the following chronic conditions: etoh, drugs. Counseling: I had a detailed discussion with the patient and/or guardian regarding the historical points, exam findings, and any diagnostic results supporting the discharge/admit diagnosis, the need for outpatient follow up, for definitive care, a family practitioner, a general surgeon. 04/21 19:44 Order name: Acetaminophen [facility] 04/21 19:44 Order name: Basic Metabolic Panel [facility] 04/21 19:44 Order name: CBC with Diff [facility] 04/21 19:44 Order name: ETOH Level [facility] 04/21 19:44 Order name: Hepatic Function 04/21 19:44 Order name: PT-INR [facility] 04/21 19:44 Order name: Ptt, Activated [facility] 04/21 19:44 Order name: Salicylate [facility] 04/21 19:44 Order name: Urine Drug Screen 04/21 19:44 Order name: Lipase [facility] 04/21 19:44 Order name: UA Rfx Zohaib Cult if indicated 04/21 19:44 Order name: EKG; Complete Time: 19:45 roney Administered Medications: 19:57 Not Given (Patient Refused): ns 0.9% 1000 ml IV at 1000 ml once; to be given as a bolus bm8 over 60 minutes Disposition Summary: 04/21/25 20:09 Discharge Ordered Notes: Location: Home roney Problem: an ongoing problem roney Symptoms: are unchanged roney Condition: Undetermined roney Diagnosis - Abdominal pain, unspecified roney - Alcohol use, unspecified roney - Vomiting roney Followup: roney - With: Private Physician - When: 2 - 3 days - Reason: Recheck today's complaints, Continuance of care, Re-evaluation by your physician Followup: roney - With: Duglas Sebastian MD - When: 2 - 3 days - Reason: Recheck today's complaints, Re-evaluation by your physician Discharge Instructions: - Discharge Summary Sheet roney - Abdominal Pain, Adult roney - Alcohol Intoxication roney - Nausea and Vomiting, Adult roney - Substance Use Disorder roney - Alcohol Intoxication, [id number] roney - Nausea and Vomiting, Adult, [id number] roney - Abdominal Pain, Adult, [id number] roney - Alcohol Abuse and Nutrition roney - Substance Use Disorder and Mental Illness roney Forms: - Medication Reconciliation Form roney - Antibiotic Education roney - Prescription Opioid Use roney - Patient Portal Instructions roney - Leadership Thank You Letter roney Signatures: Dispatcher [employer] EDLinwood Fonseca MD MD cha McDonald, Brad RN RN bm8 Mary Ellen Jones RN RN kt5 Corrections: (The following items were deleted from the chart) 19:45 19:45 ACETAMINOPHEN+C.LAB.BRZ ordered. EDMS EDMS 19:45 19:45 BASIC METABOLIC PANEL+C.LAB.BRZ ordered. EDMS EDMS 19:45 19:45 CBC+H.LAB.BRZ ordered. EDMS EDMS 19:45 19:45 ETHANOL+C.LAB.BRZ ordered. EDMS EDMS 19:45 19:45 HEPATIC FUNCTION+C.LAB.BRZ ordered. EDMS EDMS 19:45 19:45 PROTIME (+INR)+COAG.LAB.BRZ ordered. EDMS EDMS 19:45 19:45 PTT, ACTIVATED+COAG.LAB.BRZ ordered. EDMS EDMS 19:45 19:45 SALICYLATE+C.LAB.BRZ ordered. EDMS EDMS 19:45 19:45 URINE DRUG SCREEN+UC.LAB.BRZ ordered. EDMS EDMS 19:45 19:45 LIPASE+C.LAB.BRZ ordered. EDMS EDMS 19:45 19:45 UA Rfx Zohaib Cult if indicated+U.LAB.BRZ ordered. EDMS EDMS 19:57 19:44 EKG - Nurse/Tech ordered. [place] [id number] 19:57 19:44 IV Saline Lock ordered. [place] [id number] 19:57 19:44 Labs collected and sent ordered. [place] [id number] 19:57 19:44 Suicide Screening ([place]) ordered. [place] [id number]
--- NOTE | 2025-04-21 20:10 | ER ---
Nurse's Notes [facility] Name: Kim Starr Age: 39 yrs Sex: Female : 1985 Arrival Date: 04/21/2025 Time: 19:35 Bed 14 Private MD: Diagnosis: Abdominal pain, unspecified;Alcohol use, unspecified;Vomiting Presentation: 04/21 19:36 Chief complaint: Patient states: BIBA for constipation, decreased uop and abd pain due kt5 to hunger. Initial Sepsis Screen: Does the patient meet any 2 criteria? No. Patient's initial sepsis screen is negative. Does the patient have a suspected source of infection? No. Patient's initial sepsis screen is negative. Onset of symptoms was April 21, 2025. 19:36 Method Of Arrival: EMS: [facility] 19:36 Acuity: ELVIA 3 19:36 Coronavirus screen: At this time, the client does not indicate any symptoms associated bm8 with coronavirus-19. Ebola Screen: Patient negative for fever greater than or equal to 101.5 degrees Fahrenheit, and additional compatible Ebola Virus Disease symptoms Patient denies exposure to infectious person. Patient denies travel to an Ebola-affected area in the 21 days before illness onset. No symptoms or risks identified at this time. Risk Assessment: Do you want to hurt yourself or someone else? Patient reports no desire to harm self or others. Triage Assessment: 19:43 General: Appears in no apparent distress. comfortable, slender, well groomed, well bm8 developed, well nourished, Behavior is agitated, anxious, Smells of alcohol, Reports fatigue for. Pain: Denies pain. EENT: No deficits noted. 19:51 Neuro: No deficits noted. Level of Consciousness is awake, alert, obeys commands, bm8 Oriented to person, place, time, situation, Appropriate for age. Cardiovascular: Denies chest pain, Heart tones S1 S2 present Capillary refill < 3 seconds in bilateral fingers toes. Respiratory: Airway is patent Respiratory effort is even, unlabored, Respiratory pattern is regular, symmetrical, Breath sounds are clear bilaterally. GI: Reports nausea, vomiting, states that she has been having nausea and vomiting but is so incredibly hungry right now. : Denies burning with urination, inability to void, incontinence, pain urinary frequency, urgency, vaginal itching. Derm: No signs and/or symptoms reported regarding the dermatologic system. Musculoskeletal: No signs and/or symptoms reported regarding the musculoskeletal system. 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 - Infectious Disease History:: Denies. - Family history:: not pertinent. - Social history:: Smoking status: Patient reports the use of cigarette tobacco products, smokes one pack cigarettes per day. Patient uses alcohol, Patient/guardian denies using street drugs. Screenin:43 [facility] ED Fall Risk Assessment (Adult) History of falling in the last 3 months, bm8 including since admission No falls in past 3 months (0 pts) Confusion or Disorientation No (0 pts) Intoxicated or Sedated No (0 pts) Impaired Gait No (0 pts) Mobility Assist Device Used No (0 pt) Altered Elimination No (0 pt) Score/Fall Risk Level 0 - 2 = Low Risk Oriented to surroundings, Maintained a safe environment, Educated pt \T\ family on fall prevention, incl call for assistance when getting out of bed, Assessed \T\ reinforced patient's understanding of fall precautions, Hourly rounding (assess needs \T\ fall precautionary measures) done, Used ambulatory aids as needed (educated on \T\ assisted with), Used gait belt as appropriate. Abuse screen: Denies threats or abuse. Nutritional screening: No deficits noted. Tuberculosis screening: No symptoms or risk factors identified. Assessment: 19:46 General: pt left the building, provider aware. kt5 Vital Signs: 19:36 BP 146 / 78; Pulse 77; Resp 16; Temp 98.3; Pulse Ox 98% ; Weight 43.54 kg; Height 5 ft. kt5 8 in. ; Pain 4/10; 19:43 BP 155 / 98; Pulse 84; Resp 17; Temp 97.5; Pulse Ox 99% ; Weight 55.34 kg; Height 5 ft. bm8 5 in. ; Pain 0/10; 19:43 Body Mass Index 20.30 (55.34 kg, 165.1 cm) bm8 19:36 Pain Scale: Adult kt5 19:43 Pain Scale: Adult bm8 Margarito Coma Score: 19:43 Eye Response: spontaneous(4). Motor Response: obeys commands(6). Verbal Response: bm8 oriented(5). Total: 15. ED Course: 19:35 Patient arrived in ED. kt5 19:36 Mary Ellen Jones, RN is Primary Nurse. kt5 19:36 Linwood Boss MD is Attending Physician. [facility] 19:39 Triage completed. kt5 19:43 Arm band placed on right wrist. bm8 19:43 Patient has correct armband on for positive identification. Bed in low position. Side bm8 rails up X 1. Provided Education on: pt after speaking with provider . 19:43 No provider procedures requiring assistance completed. Patient did not have IV access bm8 during this emergency room visit. 20:08 Duglas Sebastian MD is Referral Physician. [facility] Administered Medications: 19:57 Not Given (Patient Refused): ns 0.9% 1000 ml IV at 1000 ml once; to be given as a bolus bm8 over 60 minutes Medication: 19:43 VIS not applicable for this client. bm8 Outcome: 19:43 Discharged to home ambulatory, bm8 19:43 Condition: stable 19:43 Discharge instructions given to patient, Instructed on discharge instructions, follow up and referral plans. Demonstrated understanding of instructions, follow-up care, 20:09 Discharge ordered by . [facility] 20:22 Patient left the ED. bm8 Signatures: Linwood Boss MD MD cha McDonald, Brad, RN RN bm8 Mary Ellen Jones RN RN kt5 Corrections: (The following items were deleted from the chart) 19:53 19:43 General: Appears in no apparent distress. comfortable, slender, well groomed, bm8 well developed, well nourished, Behavior is agitated, anxious, bm8
[2025-04-21 20:55] VITALS: BP 155/98; TEMP 97.5; O2SAT 99
== END 2025-04-21 20:22 | disposition home or self-care (01) ==
LOC: ER 19:39
DX: R10.84 Generalized abdominal pain (principal); F10.90 Alcohol use, unspecified, uncomplicated; R11.10 Vomiting, unspecified
CPT/HCPCS: 99283